=== PATIENT | female | born 1985 | race Caucasian/White ===

== ENCOUNTER 2019-02-01 05:00 | Inpatient (IN) | payer BC, SELFPAY ==
--- NOTE | 2019-01-30 11:36 | PCM.HP.BLA ---
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 Pt denies concerns today- denies VB, LOF, contractions, SOB, dizziness, VILLALBA, CP. Pt reports good FM. Pt certain she wants bilateral salpingectomy- declines LARC ? PAST MEDICAL HISTORY Diagnosis Date ? Diabetes, gestational ? ? Fatty liver disease, nonalcoholic 01/03/2018 ? Fracture of finger, distal phalanx, right, closed 05/10/2016 ? Hypertension ? ? PIH ? PMH - PAST MEDICAL HISTORY OF 2000 ? 1ST AND 2ND DEGREE GREGG TO LEGS ? PAST SURGICAL HISTORY Procedure Laterality Date ? DELIVERY ONLY ? 11/2009,07/22/12 ? , low transverse ? DELIVERY ONLY ? 12/18/15 ? , low transverse ? PAST SURGICAL HISTORY OF Right 05/2016 ? ring finger on right hand tendon repair ? PAST SURGICAL HISTORY OF ? 02/06/2018 ? endometrioma of abdominal wall [place] ? SURG RX INCOMPLETE ABORTN ? 08/13/07 ? D&C for incomplete SAB ? FAMILY HISTORY Problem Relation Age of Onset ? No Known Problems Mother ? ? Cancer Father ? ? MELANOMA ? No Known Problems Sister ? ? No Known Problems Brother ? ? Diabetes Maternal Grandmother ? ? Arthritis Maternal Grandmother ? ? Heart Maternal Grandmother ? ? Diabetes Maternal Grandfather ? ? Cancer Maternal Grandfather ? ? LUNG CANCER, smoker ? Heart Maternal Grandfather ? ? Melanoma Paternal Grandmother ? ? Cancer Paternal Grandfather ? ? MELANOMA ? No Known Problems Daughter ? ? No Known Problems Daughter ? ? No Known Problems Daughter ? ? 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 ? Current Outpatient Medications: Pdectzuz-Of-Olh-Fe-FA ( VITAMIN) tab Take 1 tablet by mouth once daily. omeprazole (PRILOSEC ORAL) Take by mouth. ? No current facility-administered medications for this visit. Allergies As of Date: 01/30/2019 (No Known Allergies) Fully Assessed 01/30/2019 ? ? REVIEW OF SYSTEMS Abdomen: no pain Bladder: no dysuria.. Expanded ROS: GENERAL: Negative for fever Allergies and current medication updated:Yes ? EXAM: BP 136/82 Wt 307 lb (139.3kg) LMP 04/27/2018 ? GENERAL: pleasant, female in no apparent distress HEENT: Normocephalic, atraumatic, mucus membranes moist and no lesions NECK: full range of motion DERMATOLOGY: Normal, without lesions, non-icteric and non-hirsute CARDIAC:Regular rate and Rhythm CHEST: Clear to auscultation Normal inspiratory effort ABDOMEN: soft, non-tender, no masses and Gravid. FHR: 136 NEURO: alert and oriented x3,exam grossly non-focal EXTREMITIES: normal ? ASSESSMENT AND PLAN: Encounter Diagnosis ? ? ICD-10-CM ? 1. Visit for screening Z36.9 URINE OB DIP B/O 2. 38 weeks gestation of Z3A.38 URINE OB DIP B/O ? 3. Pt has been counseled on risks/benefits and alternatives of surgery including but not limited to anesthesia, bleeding, infection, injury to pelvic structures including bowel, bladder, ureters and vessels. Pt wishes to proceed with surgery at this time. 4. Salpingectomy reviewed at time of surgery - will use Ligasure if available. 5. H/o cystotomy with previous cs- review this risk again 6. Consent signed. ? ? ? Mone Agustin MD ?
[2019-02-01] VITALS (25 sets, daily range): BP systolic 103–148; BP diastolic 57–85; PULSE 51–102; RESP 16–18; TEMP 35.8–36.4; O2SAT 97–100; BMI 50.6
[2019-02-01] MEDS: Lactated Ringers 1,000 ML 999 ML IV (05:20)
[2019-02-01 06:21] LABS: Absolute Lymphocyte Count 2.03 X10^3/ul (0.83-4.51); Basophil# 0.01 X10^3/uL; Basophil% 0.2 % (0-1); Eosinophil# 0.03 X10^3/uL; Eosinophils% 0.5 % (0-5); Hematocrit 33.7 % (37-47); Hemoglobin 10.7 g/dl (12.0-15.0); Lymphocyte # 2.03 X10^3/ul (4.0); Mean Corp Hgb Conc 31.8 g/gl (32-36); Mean Corpuscular Hgb 25.4 pg (27.0-32.0); Mean Corpuscular Volume 79.9 fL (81-99); Mean Platelet Vol. 12.3 fl (6.2-12.0); Monocyte# 0.45 X10^3/uL; Monocyte% 6.9 % (0-10); Neutrophil % 61.1 % (47-70); Platelet Count 233 K/mm3 (150-450); RBC Distribution Width CV 13.9 % (11.6-14.6); Red Blood Count 4.22 M/mm3 (4.2-5.4); White Blood Count 6.5 K/mm3 (4.4-11.0)
[2019-02-01 06:22] LABS: POSITIVE COUNT NO; POSITIVE DIFFERENTIAL NO; POSITIVE MORPHOLOGY NO
[2019-02-01] MEDS: Lactated Ringers 1,000 ML 150 ML IV (06:30)
[2019-02-01] MEDS: Sodium Citrate/Citric Acid 30 ML UDC PO (07:15)
--- NOTE | 2019-02-01 07:51 | FALS_PTH ---
PATIENT: WILIAM KEE LOC: [facility] U#:[id number] AGE/SX: 33/F ROOM: WP008 RE02/01/[address]: Dr. Mone Agustin, MDDOB: 1985 BED: 1 DIS: 02/04/2019 SPEC #: [id number] RECD: 02/01/19 09:29 STATUS: BRIGID TANJA #: [id number] KEERTHI: 02/01/19 07:[address]: Mone Agustin DEPT: SURGICAL PATHOLOGY RECD BY: Israel Noonan ENTERED: 02/01/19 10:55 SP TYPE: FALL TUBES OTHR DR: Dr. Jayson Rodriguez III, MD Tissues: Fallopian tube Procedures: Surgery Specimen Level II HEADER OPERATION: Tubal ligation PRE-OP DIAGNOSIS: Desired sterilization TISSUE SUBMITTED: Fallopian tube MICROSCOPIC DIAGNOSIS Bilateral fallopian tubes, tubal ligation: Right fallopian tube - segment of fallopian tube with complete lumen. Left fallopian tube - segment of fallopian tube with complete lumen. CE:jordan 02/02/19 MICROSCOPIC DESCRIPTION Slides are reviewed. GROSS DESCRIPTION Received is one container labeled with the patient's name and designated bilateral fallopian tubes. The specimen consists of two fallopian tubes with the right identified with a stitch. The right fallopian tube has an average length of 2.5 cm and has an average diameter of 0.6 cm. The left fallopian tube has an average length of 1.1 cm and has an average diameter of 0.6 cm. No mass lesions are identified. The specimen is totally submitted in two cassettes as follows: 1 - right fallopian tube, 2 - left fallopian tube. / AM:jordan 02/01/19 TC:Rachel CPT: 29126 x2
[2019-02-01] MEDS: Oxytocin 30 units/NS 500 ml 30 UNITS/500 ML IV.SOLN 167 UNITS IV (07:52)
--- NOTE | 2019-02-01 08:49 | PCM.OPRPT ---
Report of Operation Date of Procedure: 02/01/19 Pre-Operative Diagnosis: repeat elective cs and sterilization request Post-Operative Diagnosis: same punchboard inserter: Zo Armstrong Type of Anesthesia:: Spinal Grafts/Implants Used: none Delivery Classification: Scheduled Final DMITRI Source: LMP Gestational age: 39 Indications for : Repeat Elective , Desires elective sterilization Description of Procedure: After informed consent was obtained the patient was taken to the operating room she was given spinal anesthesia. He was placed in the supine position. She was then prepped and draped in normal sterile fashion. Once spinal anesthesia was found to be adequate skin incision was made with a scalpel in a Pfannenstiel fashion. It was carried down to the underlying layer of the fascia. Fascia was then incised midline with scapel and extended laterally using curved grijalva. 2 straight Franck's were placed in the superior aspect of the fascial edge and the rectus muscles were dissected off sharply. Attention was then turned to the inferior aspect where again the fascial edge was grasped with 2 straight Franck clamps tented up and the rectus muscle dissected off sharply. At this time the rectus muscles were grasped in the midline using 2 Allis clamps and scalpel was used to separate the rectus muscles. Using blunt force the peritoneum was then entered. Metzenbaums were used to take down the rectus muscles inferiorly as well as the peritoneum. At this time the vesicouterine peritoneum was identified. thick adhesion to anterior uterus- taken down with bovie. Kathryn O retractor placed. Uterine incision was made in a low transverse fashion with the scalpel and then entered bluntly. Gentle opposing traction was placed to extend the uterine incision. The membranes were ruptured amniotic fluid clear. Infant's head was then brought to the uterine incision however not engaged and kept rotating- Vacuum attempted to delivery head- two pop offs, once this was unsuccessful decision to removed kathryn O retractor and then flip to breech for delivery. Internal rotation performed and infant was delivered breech, head in flexed position with delivery. Cord clamped and cut handed to nursery team immediately. The placenta was then removed with gentle traction. The uterus was removed from the intra-abdominal cavity is wrapped in a moist lap. He was cleared of all clots and debris using a moist lap. Ring clamps were placed on the uterine angles. small extension down left side noted- #1 Vicryl suture was used in a running locked fashion for the first layer. Followed by second layer in using figure of eight sutures for hemostasis. Area on anterior uterus where adhesion was taken down was raw and bleeding- at this time sutures placed for hemostasis and bovie used as well. Tubes and ovaries were evaluated they were normal. The tubes were grasped in an avascular area with the Myla 0- plain gut suture was used to create a knuckle this was doubly secured. A portion of the tube was then resected using the Metzenbaum scissors. And the ends were coagulated using the Bovie. Uterus placed back in intrabdominal cavity. Good hemostasis was appreciated at this time the uterine incision was again evaluated good hemostasis was appreciated. Caty placed over uterus. The peritoneum and muscle was grasped with Kellys. this was reapproximated using #2 Vicryl suture in a running fashion. The fascia was then reapproximated using #1 PDS in a running fashion. Subcutaneous layer was evaluated and Bovie was used for any small oozing - Caty placed - #2-0 plain gut suture was then used to reapproximate the subcutaneous layer 4-0 Vicryl on a Vikram needle was used to reapproximate the skin in a subcutaneous fashion. Dry sterile dressing was applied. Instrument lap needle count were correct ?2. Anticipated normal postoperative course for this patient. Amniotic Membrane Rupture Type: Artificial Amniotic Fluid Description: Clear Placenta Disposition: [facility] Specimen(s) sent to pathology: none Drain: Duckworth to straight drain Cord Entanglement: None Nuchal Cord Compression: Without compression Cord Vessel Description: 3 Vessels Esitmated Blood Loss (ml): 950 Infant Gender: Male (1 minute): 3 (5 minute): 8 - 9 at 10min Delayed cord clamping: No Pre-op Antibiotic Given: - - ancef 3 g Pt instructed on risks of surgery: Bleeding, Anesthesia Risks, Infection, Need for Future C-Sections, Permanency, Failure Rate of 1 to 2%, Injury to surrounding structure(s) including bowel and bladder, Availability of other non-permanent control options Complications: - - difficult delivery of - vertex to breech delivery. - Admit VTE Documentation VTE Present on Admission: Yes VTE Mechan Device Prophylaxis: SCD's VTE Pharm Prophylaxis ordered?: Yes
[2019-02-01] MEDS: Ondansetron 4 MG/2 ML Vial IV (09:24)
[2019-02-01] MEDS: Ketorolac 30 MG/ML Syringe IV ×3 (09:24→23:06)
[2019-02-01] MEDS: Lactated Ringers 1,000 ML 100 ML IV ×3 (09:31→23:07)
[2019-02-01] MEDS: proMETHazine 25 MG/ML Syringe 12.5 MG IV ×2 (11:17→15:56)
[2019-02-01] MEDS: Acetaminophen 500 MG Tablet 1000 MG PO (12:34)
[2019-02-01] MEDS: 0.9% Saline Lock 10 ML Syringe IV ×2 (15:59→18:26)
[2019-02-01] MEDS: Furosemide 20 MG/2 ML VIAL IV (17:06)
[2019-02-02] VITALS (8 sets, daily range): BP systolic 128–149; BP diastolic 69–87; PULSE 78–115; RESP 18–20; TEMP 36.6–36.9; O2SAT 96–99
[2019-02-02] MEDS: Acetaminophen 500 MG Tablet 1000 MG PO ×2 (03:14→15:13)
[2019-02-02] MEDS: Ketorolac 30 MG/ML Syringe IV (05:39)
[2019-02-02] MEDS: Enoxaparin 40 MG/0.4 ML Syringe SC (05:39)
[2019-02-02 06:06] LABS: Hemoglobin 6.5 g/dl (12.0-15.0); Mean Corp Hgb Conc 32.5 g/gl (32-36); Mean Corpuscular Hgb 26.2 pg (27.0-32.0); Mean Corpuscular Volume 80.6 fL (81-99); Mean Platelet Vol. 10.5 fl (6.2-12.0); Platelet Count 165 K/mm3 (150-450); RBC Distribution Width SD 41.1 fl (35.1-43.9); Red Blood Count 2.48 M/mm3 (4.2-5.4); Scan Indicated on CBC? Y/N NO; White Blood Count 6.3 K/mm3 (4.4-11.0)
[2019-02-02] MEDS: oxyCODONE 5 MG Tablet PO ×4 (08:00→21:37)
--- NOTE | 2019-02-02 08:00 | PCM.PN.OB ---
Subjective: pt seen at bedside doing well. pt is up to couch, ambulating w/o difficutly. pt reports lochia mild. Passing flatus. pt denies CP, SOB, dizziness or palpitations. - Physical Exam General: Alert, Oriented x3 Abdomen: Soft, Non-Distended, - - fundus firm. dressing dry and intact. Extremities: No Calf Tenderness Vital Signs Temp Pulse Resp BP Pulse Ox 97.3 F L 90 18 128/69 H 98 02/01/19 23:25 02/02/19 06:00 02/02/19 06:00 02/02/19 03:31 02/02/19 06:00 Oxygen Delivery Method Room Air Weight: 138.164 kg Body Mass Index (BMI) 50.6 Intake and Output for Last 24 Hours 01/31/19 02/01/19 02/02/19 23:59 23:59 23:59 Intake Total 5625 / 5625 940 / 940 Output Total 1580 / 1580 800 / 800 Balance 4045 / 4045 140 / 140 Laboratory Tests Past 24 Hrs 02/02/19 05:45 WBC 6.3 RBC 2.48 L Hgb 6.5 L Hct 20.0 L MCV 80.6 L MCH 26.2 L MCHC 32.5 RDW 14.0 RDW Differential 41.1 Plt Count 165 MPV 10.5 Medical Necessity - Tobacco Use Smoking Status: Former smoker Assessment/Plan POD#1 s/p Repeat cs and bilateral partial salpingectomy- with acute on chronic blood loss anemia 1) continue to monitor VS and symptoms- if becomes symptomatic for anemia consider Blood transfusion which was reviewed with patient 2) Repeat cbc today at noon 3) pain mgmt 4) ambulation
[2019-02-02] MEDS: Senna/Docusate Sodium 1 Tablet PO (09:49)
[2019-02-02] MEDS: Ibuprofen 600 MG Tablet PO ×2 (11:24→23:02)
[2019-02-02 12:29] LABS: Absolute Lymphocyte Count 1.46 X10^3/ul (0.83-4.51); Absolute Neutrophil Count 5.7 X10^3/uL (2.0-7.7); Basophil# 0.01 X10^3/uL; Basophil% 0.1 % (0-1); Eosinophil# 0.02 X10^3/uL; Eosinophils% 0.3 % (0-5); Hematocrit 21.5 % (37-47); Hemoglobin 6.8 g/dl (12.0-15.0); Lymphocyte # 1.46 X10^3/ul (4.0); Lymphocyte % 18.6 % (19-41); Mean Corp Hgb Conc 31.6 g/gl (32-36); Mean Corpuscular Hgb 25.9 pg (27.0-32.0); Mean Corpuscular Volume 81.7 fL (81-99); Mean Platelet Vol. 11.7 fl (6.2-12.0); Monocyte# 0.64 X10^3/uL; Monocyte% 8.2 % (0-10); Neutrophil # 5.68 X10^3/uL (2.7-7.7); Neutrophil % 72.4 % (47-70); Platelet Count 192 K/mm3 (150-450); RBC Distribution Width CV 13.7 % (11.6-14.6); RBC Distribution Width SD 38.8 fl (35.1-43.9); Red Blood Count 2.63 M/mm3 (4.2-5.4); White Blood Count 7.8 K/mm3 (4.4-11.0)
[2019-02-02 12:32] LABS: POSITIVE COUNT NO; POSITIVE DIFFERENTIAL NO; POSITIVE MORPHOLOGY NO
[2019-02-02] MEDS: 0.9% Saline Lock 10 ML Syringe IV (16:52)
[2019-02-03] VITALS (13 sets, daily range): BP systolic 113–152; BP diastolic 74–88; PULSE 100–119; RESP 16–20; TEMP 35.9–37.4; O2SAT 95–97
[2019-02-03] MEDS: Acetaminophen 500 MG Tablet 1000 MG PO ×2 (01:50→08:29)
[2019-02-03] MEDS: oxyCODONE 5 MG Tablet PO ×4 (04:34→21:22)
[2019-02-03 05:23] LABS: Hemoglobin 6.2 g/dl (12.0-15.0); Mean Corpuscular Hgb 25.3 pg (27.0-32.0); Mean Corpuscular Volume 81.6 fL (81-99); Mean Platelet Vol. 10.2 fl (6.2-12.0); Platelet Count 186 K/mm3 (150-450); RBC Distribution Width CV 14.3 % (11.6-14.6); RBC Distribution Width SD 42.7 fl (35.1-43.9); Red Blood Count 2.45 M/mm3 (4.2-5.4); Scan Indicated on CBC? Y/N NO
--- NOTE | 2019-02-03 06:17 | PCM.PN.OB ---
Subjective: Patient had some significant pain issues overnight. Is feeling much better this morning. Had a bowel movement and feels better after that. No nausea or vomiting. Average lochia. Tolerating regular diet. Ambulating and able to take care of . Feels very fatigued with ambulating even around the room. - Physical Exam General: Alert, Cooperative, No apparent distress, - - Skin is very pale Abdomen: Soft, Distended - Moderately, softly, Obese, Tender - Appropriately, - - Incision: Bandages clean dry and intact Extremities: Edema - 2+ Vital Signs Temp Pulse Resp BP Pulse Ox 98.6 F 105 H 16 136/75 H 96 02/03/19 01:46 02/03/19 04:36 02/03/19 01:46 02/03/19 01:46 02/03/19 01:46 Oxygen Delivery Method Room Air Weight: 138.164 kg Body Mass Index (BMI) 50.6 Intake and Output for Last 24 Hours 02/01/19 02/02/19 02/03/19 23:59 23:59 23:59 Intake Total 5625 / 5625 940 / 940 Output Total 1580 / 1580 1000 / 1000 Balance 4045 / 4045 -60 / -60 Laboratory Tests Past 24 Hrs 02/02/19 02/03/19 12:04 05:16 WBC 7.8 9.0 RBC 2.63 L 2.45 L Hgb 6.8 L 6.2 L Hct 21.5 L 20.0 L MCV 81.7 81.6 MCH 25.9 L 25.3 L MCHC 31.6 L 31.0 L RDW 13.7 14.3 RDW Differential 38.8 42.7 Plt Count 192 186 MPV 11.7 10.2 Immature Gran % (Auto) 0.400 Neut % (Auto) 72.4 H Lymph % (Auto) 18.[address] [facility] % (Auto) 8.2 Eos % (Auto) 0.3 Baso % (Auto) 0.1 Absolute Neuts (auto) 5.7 Absolute Lymphs (auto) 1.46 Total Counted Not Reportable Medical Necessity - Tobacco Use Smoking Status: Former smoker Assessment/Plan Postoperative day #2 status post repeat section bilateral tubal ligation by partial salpingectomy Patient had chronic antepartum anemia, now has superimposed acute blood loss anemia from surgery. No evidence of ongoing blood loss, however patient is symptomatic from her significant anemia. I discussed with the patient risk benefits and alternatives to transfusion of 2 units of packed red blood cells. Patient is agreeable to this. Will pretreat with Benadryl and Tylenol. Check CBC after infusion. Otherwise, routine care. Urged patient to take her pain medications regularly to help keep her pain under better control.
[2019-02-03] MEDS: Enoxaparin 40 MG/0.4 ML Syringe SC (06:23)
[2019-02-03] MEDS: Ibuprofen 600 MG Tablet PO ×2 (08:14→23:33)
[2019-02-03] MEDS: DiphenhydrAMINE 25 MG Capsule 50 MG PO (08:15)
[2019-02-03] MEDS: 0.9% Saline Lock 10 ML Syringe IV ×2 (08:17→17:54)
[2019-02-03] MEDS: Furosemide 40 MG/4 ML Vial IV (11:26)
[2019-02-03 16:47] LABS: Hematocrit 25.8 % (37-47); Hemoglobin 8.2 g/dl (12.0-15.0); Mean Corp Hgb Conc 31.8 g/gl (32-36); Mean Corpuscular Hgb 25.9 pg (27.0-32.0); Mean Corpuscular Volume 81.6 fL (81-99); Mean Platelet Vol. 10.4 fl (6.2-12.0); Platelet Count 202 K/mm3 (150-450); RBC Distribution Width CV 14.2 % (11.6-14.6); RBC Distribution Width SD 41.9 fl (35.1-43.9); Red Blood Count 3.16 M/mm3 (4.2-5.4); White Blood Count 8.5 K/mm3 (4.4-11.0)
[2019-02-03 16:51] LABS: Scan Indicated on CBC? Y/N NO
[2019-02-03] MEDS: proMETHazine 25 MG/ML Syringe 12.5 MG IV (17:54)
[2019-02-04 03:30] VITALS: BP 141/91; PULSE 95; RESP 16; TEMP 36.2
[2019-02-04] MEDS: oxyCODONE 5 MG Tablet PO (03:35)
[2019-02-04] MEDS: Enoxaparin 40 MG/0.4 ML Syringe SC (06:10)
[2019-02-04] MEDS: Ibuprofen 600 MG Tablet PO (08:38)
[2019-02-04 08:47] VITALS: BP 144/87; PULSE 105; RESP 18; TEMP 36.3; O2SAT 96
--- NOTE | 2019-02-04 11:19 | PCM.PN.OB ---
Subjective: Pain well controlled, much better last night than the previous night. Has been taking pain medication regularly to keep pain under better control. Positive bowel movement, tolerating regular diet. Ambulating urinating without difficulty. Patient does state that she get mildly lightheaded in the shower, otherwise is able to ambulate without significant shortness of breath or dyspnea or palpitations. She does not feel short of breath or like her heart is racing at rest like she did yesterday before the transfusion. She denies any headache, visual changes or epigastric pain. - Physical Exam General: Alert, Cooperative, No apparent distress Abdomen: Soft, Non-Distended, Obese, Tender - Appropriately Extremities: Edema - 2+, 2+ DTRs, no clonus Skin: Incision - Bandage is clean dry and intact Vital Signs Temp Pulse Resp BP Pulse Ox 97.3 F L 105 H 18 144/87 H 96 02/04/19 08:47 02/04/19 08:47 02/04/19 08:47 02/04/19 08:47 02/04/19 08:47 Oxygen Delivery Method Room Air Weight: 138.164 kg Body Mass Index (BMI) 50.6 Intake and Output for Last 24 Hours 02/02/19 02/03/19 02/04/19 23:59 23:59 23:59 Intake Total 940 / 940 1200 / 1200 Output Total 1000 / 1000 1700 / 1700 Balance -60 / -60 -500 / -500 Laboratory Tests Past 24 Hrs 02/01/19 02/03/19 02/04/19 05:20 16:33 10:55 WBC 8.5 Pending RBC 3.16 L Pending Hgb 8.2 L Pending Hct 25.8 L Pending MCV 81.6 Pending MCH 25.9 L Pending MCHC 31.8 L Pending RDW 14.2 Pending RDW Differential 41.9 Pending Plt Count 202 Pending MPV 10.4 Crossmatch See Detail Medical Necessity - Tobacco Use Smoking Status: Former smoker Assessment/Plan Postoperative day #3 status post repeat section with bilateral tubal ligation. Chronic antepartum anemia with superimposed acute blood loss anemia, status post 2 units of packed red blood cells. Mild tachycardia overnight. Will recheck hemoglobin this morning and if it is stable, and she continues to tolerate the anemia well this morning, will discharge home with iron. Patient states understanding and agreement of this plan. Blood pressures remained stable. We will continue to monitor closely. Return or call if any symptoms of preeclampsia with severe features or other concerns. Otherwise follow-up in the office in 3 to 5 days or as needed. Patient agrees with this plan. is doing well and ready for discharge. She is pumping breastmilk.
[2019-02-04 11:22] LABS: Hematocrit 25.2 % (37-47); Hemoglobin 8.1 g/dl (12.0-15.0); Mean Corp Hgb Conc 32.1 g/gl (32-36); Mean Corpuscular Volume 80.8 fL (81-99); Mean Platelet Vol. 10.9 fl (6.2-12.0); Platelet Count 232 K/mm3 (150-450); RBC Distribution Width CV 14.6 % (11.6-14.6); RBC Distribution Width SD 42.7 fl (35.1-43.9); Red Blood Count 3.12 M/mm3 (4.2-5.4); White Blood Count 5.6 K/mm3 (4.4-11.0)
[2019-02-04 11:23] LABS: Scan Indicated on CBC? Y/N NO
--- NOTE | 2019-02-04 11:27 | DCINST_ITS ---
Discharge Diet: No Restrictions Discharge Activity: Return to Normal Activity, May Not Drive - for 2 weeks, May not drive while taking narcotic pain medications., May Shower, May Take a Tub Bath - in 7 days. May resume sexual activity in: 4-6 weeks Lifting Restrictions: 20 pounds Additional Activity Instructions:: Nothing in the vagina for 4-6 weeks. You may return to work/school in 6 weeks. Call your doctor if your incision/area has: Continuous Slow Oozing, Sudden Increased Bleeding, Increased Pain/ Swelling, Increased Redness, Foul Smelling Discharge Call your doctor if you observe: Fever of 101 or Higher, Using more than one pad per hour - for 2 hours Suture Line Care: Avoid Pulling/Pushing, Avoid Pinching/Bending Cleanse incision/area with: Keep Dressing Clean & Dry Additional Instructions: If you experience any of the following, contact your healthcare provider. * Bleeding that soaks a pad every hour for 2 hours * Fever 100.4 or higher * Unrelieved incision or abdominal pain * Swelling, redness, discharge or bleeding from your incision or episiotomy site * Your incision begins to separate * Problems urinating (including inability to urinate or burning while urinating). * Visual changes * Severe headache * Flu-like symptoms * Pain or redness in one of both of your breasts * Pain, warmth, tenderness or swelling in your legs, especially the calf area * Frequent nausea and vomiting * Symptoms of depression or anxiety If you experience any of the following, call 911 or go to the nearest Emergency Room. * Chest pain * Problems breathing * Seizure activity * Partial or complete paralysis of a body part, slurred speech, weakness or drooping of the face, or a sudden inability to walk or hold your balance Allergies/Adverse Reactions: Allergies latex Allergy (Verified 02/01/19 05:46) Rash acetaminophen [From Vicodin] Adverse Reaction (Verified 02/01/19 05:46) Nausea/Vom/Diarrhea hydrocodone bitartrate [From Vicodin] Adverse Reaction (Verified 02/01/19 05:46) Nausea/Vom/Diarrhea Medications to take at Discharge Flh148/Iron Fum/Folic [ Tablet] 1 each PO DAILY 12/18/15 Docusate Sodium [Colace] 100 mg PO BID PRN PRN #60 capsule 02/04/19 Ferrous Sulfate [Iron] 325 mg PO QODAY #15 tablet 02/04/19 Ibuprofen [Motrin] 600 mg PO Q6H PRN #60 tablet 02/04/19 Oxycodone HCl/Acetaminophen [Percocet 5-325] 1 - 2 tablet PO Q8 PRN 7 Days #28 tablet 02/04/19 The following prescriptions were given: Docusate Sodium [Colace] 100 mg PO BID PRN PRN #60 capsule PRN Reason: Constipation Ferrous Sulfate [Iron] 325 mg PO QODAY #15 tablet Oxycodone HCl/Acetaminophen [Percocet 5-325] 1 - 2 tablet PO Q8 PRN 7 Days #28 tablet PRN Reason: Moderate-Severe pain Ibuprofen [Motrin] 600 mg PO Q6H PRN #60 tablet PRN Reason: Pain Follow-Up: Call to make an appointment with your doctor for an incision check in 1-2 weeks. You will also need a 6 week post- follow up appointment. Test results from this visit will be discussed in further detail at your follow- up appointment, if applicable. Please Follow Up With: Mone Agustin MD - -[phone] When: 3-5 days and 6 weeks or as needed Primary Care Physician: Jayson Rodriguez III, MD [Primary Care Provider] -
--- NOTE | 2019-02-04 11:28 | PCM.DC.SUM ---
Discharge Date and Diagnosis Date of Admission: 02/01/19 Date of Discharge: 02/04/19 Hospital Course and Treatment Operations: - - Repeat low transverse section via Pfannenstiel skin incision with bilateral partial salpingectomy Procedures: - - Transfusion of 2 units of packed red blood cells Summary of Care Provided: The patient is a 33 high risk multigravida female presented for repeat section. She had chronic antepartum anemia. Also morbid maternal obesity with BMI of 50.7. Her repeat section was performed on 02/01/2019. She had some significant adhesions and the was 10 pounds 7 ounces. There is difficulty getting the head to engage at the incision. A vacuum was placed on the flexion point and popped off twice. Even at that point, the head floated away with attempt to deliver it. Eventually, the fetus was turned to breech and delivered footling breech. Bilateral partial salpingectomy was then performed. Postoperatively, the patient had some tachycardia and was noted to be pale. She had significant anemia resulting from her chronic anemia and SPECT a drop from the blood loss during the surgery. She had no evidence of ongoing postoperative hemorrhage. Postoperative day #1 she tolerated the anemia fairly well, but on postoperative day #2 her hemoglobin trended down and she remained tachycardic and lightheaded with activity. Decision was made to transfuse 2 units packed red blood cells. By postoperative day #3, her hemoglobin was stable, she was ambulating urinating tolerating regular diet and oral pain medications without difficulty and she was discharged home with routine instructions and prescriptions. [] - Physical Exam Vital Signs Temp Pulse Resp BP Pulse Ox 97.3 F L 105 H 18 144/87 H 96 02/04/19 08:47 02/04/19 08:47 02/04/19 08:47 02/04/19 08:47 02/04/19 08:47 Oxygen Delivery Method Room Air Weight: 138.164 kg Body Mass Index (BMI) 50.6 Intake and Output for Last 24 Hours 02/02/19 02/03/19 02/04/19 23:59 23:59 23:59 Intake Total 940 / 940 1200 / 1200 Output Total 1000 / 1000 1700 / 1700 Balance -60 / -60 -500 / -500 Laboratory Tests Past 24 Hrs 02/01/19 02/03/19 02/04/19 05:20 16:33 10:55 WBC 8.5 5.6 RBC 3.16 L 3.12 L Hgb 8.2 L 8.1 L Hct 25.8 L 25.2 L MCV 81.6 80.8 L MCH 25.9 L 26.0 L MCHC 31.8 L 32.1 RDW 14.2 14.6 RDW Differential 41.9 42.7 Plt Count 202 232 MPV 10.4 10.9 Crossmatch See Detail Discharge Diet: No Restrictions Discharge Activity: Return to Normal Activity, May Not Drive - for 2 weeks, May not drive while taking narcotic pain medications., May Shower, May Take a Tub Bath - in 7 days. May resume sexual activity in: 4-6 weeks Additional Activity Instructions:: Nothing in the vagina for 4-6 weeks. You may return to work/school in 6 weeks. Call your doctor if your incision/area has: Continuous Slow Oozing, Sudden Increased Bleeding, Increased Pain/ Swelling, Increased Redness, Foul Smelling Discharge Call your doctor if you observe: Fever of 101 or Higher, Using more than one pad per hour - for 2 hours Suture Line Care: Avoid Pulling/Pushing, Avoid Pinching/Bending Cleanse incision/area with: Keep Dressing Clean & Dry Home Medications: Medications to take at Discharge [id number]/Iron Fum/Folic [ Tablet] 1 each PO DAILY 12/18/15 Docusate Sodium [Colace] 100 mg PO BID PRN PRN #60 capsule 02/04/19 Ferrous Sulfate [Iron] 325 mg PO QODAY #15 tablet 02/04/19 Ibuprofen [Motrin] 600 mg PO Q6H PRN #60 tablet 02/04/19 Oxycodone HCl/Acetaminophen [Percocet 5-325] 1 - 2 tablet PO Q8 PRN 7 Days #28 tablet 02/04/19 Following Prescrptions Were Given to Patient: Docusate Sodium [Colace] 100 mg PO BID PRN PRN #60 capsule PRN Reason: Constipation Ferrous Sulfate [Iron] 325 mg PO QODAY #15 tablet Oxycodone HCl/Acetaminophen [Percocet 5-325] 1 - 2 tablet PO Q8 PRN 7 Days #28 tablet PRN Reason: Moderate-Severe pain Ibuprofen [Motrin] 600 mg PO Q6H PRN #60 tablet PRN Reason: Pain Primary Care Physician: Jayson Rodriguez III, MD [Primary Care Provider] - Please Follow Up With: Mone Agustin MD - -[phone] When: 3-5 days and 6 weeks or as needed Medical Necessity - Tobacco Use Smoking Status: Former smoker Meaningful Use Info Meaningful Use Diagnoses (Choose all that apply): None applicable
[2019-02-05 15:51] LABS: Pathology Specimen OB SEE PATHOLOGY REPORT
--- NOTE | 2019-02-08 17:02 | NURSING ---
On follow up phone call states everything doing well and enjoyed stay. 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
== END 2019-02-04 12:25 | disposition home or self-care (01) | DRG 784 ==
PROVIDERS: Obstetrics & Gynecology; Admitting Provider Obstetrics & Gynecology; Family Provider Family Medicine; PCP Family Medicine; Referring Provider Obstetrics & Gynecology; Visit Provider Obstetrics & Gynecology
PROC: (CPT 59514; principal; 2019-02-01 07:15)
DX: O34.211 Maternal care for low transverse scar from previous cesarean delivery (principal); D62 Acute posthemorrhagic anemia; N85.8 Other specified noninflammatory disorders of uterus; Z3A.38 38 weeks gestation of pregnancy; Z37.0 Single live birth; Z30.2 Encounter for sterilization; Z87.891 Personal history of nicotine dependence; O99.02 Anemia complicating childbirth; D50.0 Iron deficiency anemia secondary to blood loss (chronic); E66.01 Morbid (severe) obesity due to excess calories; O99.214 Obesity complicating childbirth
CPT/HCPCS: 36415; 85025; 85027; 86850; 86900; 86920; 86922; 88302; 99218; J7120; P9016; P9040; A4216; G0378; J1940; J2405

== ENCOUNTER → 2022-10-12 | Outpatient (CLI) | payer BC, SELFPAY ==
[2022-10-12 12:13] LABS: Absolute Lymphocyte Count 2.47 X10^3/uL (0.83-4.51); Absolute Neutrophil Count 4.2 X10^3/uL (2.0-7.7); Basophil# 0.05 X10^3/uL; Basophil% 0.7 % (0-1); Eosinophils% 1.4 % (0-5); Hematocrit 35.4 % (37-47); Hemoglobin 10.6 g/dL (12.0-15.0); Lymphocyte # 2.47 X10^3/ul (0.83-4.51); Lymphocyte % 34.3 % (19-41); Mean Corp Hgb Conc 29.9 g/dL (32-36); Mean Platelet Vol. 11.1 fl (6.2-12.0); Monocyte# 0.33 X10^3/uL; Monocyte% 4.6 % (0-10); NRBC Flagged by Analyzer 0 % (0-5); Neutrophil # 4.23 X10^3/uL (2.7-7.7); Neutrophil % 58.7 % (47-70); Platelet Count 350 K/mm3 (150-450); RBC Distribution Width CV 16.6 % (11.6-14.6); RBC Distribution Width SD 45.8 fl (35.1-43.9); White Blood Count 7.2 K/mm3 (4.4-11.0)
[2022-10-12 12:57] LABS: ALB/GLOB Ratio 0.9 RATIO (0.9-2.4); AST(SGOT) 17 U/L (15-37); Alanine Aminotransfer ALT/SGPT 45 U/L (13-56); Albumin, Serum 3.6 g/dL (3.2-5.0); Alkaline Phosphatase 106 U/L (45-117); Anion Gap 8 (5-15); BUN 7 mg/dL (7-18); BUN/Creat Ratio 10.3 RATIO (10-20); Calcium,Total 8.7 mg/dL (8.5-10.1); Chloride 107 mmol/L (98-107); Cholesterol 187 mg/dL (200); Creatinine, Serum 0.68 mg/dL (0.55-1.02); EST Glomerular Filtration Rate 103 mL/min (>60); Est Glom Filt Rate - Afr Amer 125 mL/min (>60); Globulin 3.9 g/dL (2.2-4.2); Glucose 100 mg/dL (74-106); High Density Lipoprotein 32 mg/dL; Potassium 4.3 mmol/L (3.5-5.1); Protein, Total 7.5 g/dL (6.4-8.2); Sodium Level 140 mmol/L (136-145); Thyroid Stim Hormone (TSH) 2.76 uIU/mL (0.358-3.74); Triglycerides 129 mg/dL; Very Low Density Lipoprotein 26 mg/dL (5-40)
[2022-10-12 13:02] LABS: Hemoglobin A1c 6.5 % (3.8-5.6)
== END | disposition home or self-care (01) ==
LOC: BIMLAB 10:56
PROVIDERS: PCP Internal Medicine; Referring Provider Internal Medicine; Visit Provider Internal Medicine
DX: N92.0 Excessive and frequent menstruation with regular cycle (principal); Z86.32 Personal history of gestational diabetes; E78.00 Pure hypercholesterolemia, unspecified
CPT/HCPCS: 36415; 80053; 80061; 83036; 84443; 85025

== ENCOUNTER → 2022-11-12 | Outpatient (CLI) | payer BC, SELFPAY ==
--- NOTE | 2022-11-12 12:52 | US_ITS ---
STUDY: ULTRASOUND OF THE FEMALE PELVIS - LIMITED REASON FOR EXAM: Female, 37 years old heavy menstrual bleeding/clotting TECHNIQUE: Transabdominal TECHNICAL QUALITY: Adequate. COMPARISON: None. FINDINGS: The uterus is anteverted and is in a midline position. The uterus measures 10.4 x 6.6 x 3.9 cm. Normal uterine cervix. The endometrium measures 9 mm in thickness, and is hyperechoic. There is no demonstrated endometrial mass. There is a 1.5 cm x 1.6 x 1.4 cm fibroid in the anterior aspect of the body of the uterus. The right ovary is not visualized due to overlying bowel gas. The left ovary measures 2.6 cm x 2.7 cm x 3 cm. There is no left ovarian cyst or ovarian mass. There is no visualized left adnexal mass or complex lesion. There is normal arterial and normal venous vascularity. There is no fluid in the cul-de-sac. US/Pelvic (Non ) IMPRESSION: 1.5 sono by 1.6 x 1.4 cm fibroid in along the anterior aspect of the uterine body. Electronically Signed: Martin Lennon MD at 15:27 EST ,
== END | disposition home or self-care (01) ==
LOC: US 12:52
PROVIDERS: PCP Internal Medicine; Referring Provider Internal Medicine; Visit Provider Internal Medicine
DX: N92.0 Excessive and frequent menstruation with regular cycle (principal)
CPT/HCPCS: 76856

== ENCOUNTER → 2022-11-25 | Outpatient (CLI) | payer BC, SELFPAY ==
[2022-11-25 12:44] LABS: Microalbumin,Random Urine 65.6 mg/L (NO RANGE EST.)
== END | disposition home or self-care (01) ==
LOC: BIMLAB 08:55
PROVIDERS: PCP Internal Medicine; Referring Provider Internal Medicine; Visit Provider Internal Medicine
DX: E11.9 Type 2 diabetes mellitus without complications (principal)
CPT/HCPCS: 82043; 82570

== ENCOUNTER → 2023-01-03 | Outpatient (CLI) | payer BC, SELFPAY ==
[2023-01-10 15:07] LABS: HPV APTIMA, High Risk Negative (Negative)
== END | disposition home or self-care (01) ==
LOC: LABSPEC 14:00
PROVIDERS: PCP Internal Medicine; Referring Provider Nurse Practitioner Women's Health; Visit Provider Nurse Practitioner Women's Health
DX: Z01.419 Encounter for gynecological examination (general) (routine) without abnormal findings (principal)
CPT/HCPCS: 87624; 88175; G0145

== ENCOUNTER → 2023-01-18 | Outpatient (CLI) | payer BC, SELFPAY ==
--- NOTE | 2023-01-18 09:10 | EMB_PTH ---
PATIENT: WILIAM KEE [facility] U#:[id number] AGE/SX: 37/F ROOM: RE01/18/[address]: KARMEN Hawkins : 1985 BED: DIS: 01/18/2023 SPEC #: [id number] RECD: 01/18/23 09:37 STATUS: BRIGID REQ #: [id number] KEERTHI: 01/18/23 09:[address]: Jeane Vega NP DEPT: SURGICAL PATHOLOGY RECD BY: Jodi Lozano ENTERED: 01/18/23 10:29 SP TYPE: ENDOM BX/C CHANNING DR: Dr. Manju Brewster MD Tissues: Endometrium, NOS Procedures: Surgery Specimen Level IV HEADER OPERATION: Endometrial biopsy PRE-OP DIAGNOSIS: Abnormal uterine bleeding TISSUE SUBMITTED: Endometrial tissue MICROSCOPIC DIAGNOSIS Endometrium, biopsy: Disordered proliferative endometrium. Rare fragments of benign superficial endocervix. AM:jordan 01/19/2023 MICROSCOPIC DESCRIPTION Slides are reviewed. GROSS DESCRIPTION Received is one container labeled with the patient's name and not further designated. The specimen consists of multiple irregular fragments of red-jay soft tissue that in aggregate measure 2.2 x 2.0 x 0.2 cm. The specimen is totally submitted in one cassette. / AM:jordan 01/18/2023 TC:5 CPT: 15820
== END | disposition home or self-care (01) ==
LOC: LABSPEC 09:50
PROVIDERS: PCP Internal Medicine; Referring Provider Nurse Practitioner Women's Health; Visit Provider Nurse Practitioner Women's Health
DX: N93.9 Abnormal uterine and vaginal bleeding, unspecified (principal)
CPT/HCPCS: 88305

== ENCOUNTER → 2023-04-21 | Outpatient (CLI) | payer BC, SELFPAY ==
[2023-04-21 12:43] LABS: Hemoglobin 9.9 g/dL (12.0-15.0); Mean Corp Hgb Conc 29.1 g/dL (32-36); Mean Corpuscular Hgb 22.4 pg (27.0-32.0); Mean Corpuscular Volume 76.9 fL (81-99); Mean Platelet Vol. 10.9 fl (6.2-12.0); Platelet Count 381 K/mm3 (150-450); RBC Distribution Width CV 15.7 % (11.6-14.6); RBC Distribution Width SD 44.2 fl (35.1-43.9); Red Blood Count 4.42 M/mm3 (4.2-5.4); White Blood Count 6.7 K/mm3 (4.4-11.0)
[2023-04-21 13:15] LABS: Anion Gap 5 (5-15); BUN 11 mg/dL (7-18); BUN/Creat Ratio 15.6 RATIO (10-20); Calcium,Total 8.6 mg/dL (8.5-10.1); Chloride 110 mmol/L (98-107); Creatinine, Serum 0.71 mg/dL (0.55-1.02); EST Glomerular Filtration Rate 99 mL/min (>60); Est Glom Filt Rate - Afr Amer 120 mL/min (>60); Glucose 107 mg/dL (74-106); Potassium 4.1 mmol/L (3.5-5.1); Sodium Level 141 mmol/L (136-145)
== END | disposition home or self-care (01) ==
LOC: BIMLAB 08:28
PROVIDERS: PCP Internal Medicine; Referring Provider Internal Medicine; Visit Provider Internal Medicine
DX: N92.0 Excessive and frequent menstruation with regular cycle (principal); E11.9 Type 2 diabetes mellitus without complications
CPT/HCPCS: 36415; 80048; 85027

== ENCOUNTER → 2023-11-16 | Outpatient (CLI) | payer BC, SELFPAY ==
--- OUTSIDE RECORDS SUMMARY | 2023-11-16 08:35 | XMS RPT_ITS | CCD ---
Author Name Unknown Address [facility] [address] [place] [address] Organization [facility] Care Team Providers Care Garment Sorter Name Role Phone JOSEPH NERI Unavailable Unavailable JOSEPH NERI Unavailable Unavailable Allergies Allergy Classification Reported Allergen(s) Allergy Type Date of Onset Reaction(s) Facility (1 source) acetaminophen / HYDROcodone; Translations: [HYDROCODONE-ACET AMINOPHEN] Drug Allergy 5 [facility] Repository (1 source) Latex; Translations: [LATEX] Propensity to adverse reactions to drug (disorder) 9 [facility] Repository Problems Problem Classification Problem Date Documented Da te Episodic/Chronic Endometriosis (1 source) Endometriosis, unspecified; Translations: [Endometriosis, unspecified] Onset: 12-30-2017 Chronic Results Test Name Value Interpretation Reference Range Facil ity Encounters Encounter Date Encounter Type Care Provider Facility Start: 02-06-2018 End: 02-06-2018 Ambulatory [facility] Clinical Note 09-16-2021 Note Date & Type Note Facility 09-16-2021 Note Patient Outreach (TALIB ARNDT) WILIAM KEE ([id number]) 1985 F Date Time Provider Department 09/16/21 SHY MARSHALL During your visit today, we recorded the following information about you: Shy Marshall MA 09/16/2021 8:28 AM Signed POPULATION HEALTH NAVIGATION OUTREACH Action/FYI Attempted to contact patient, no answer and left message requesting a return call to update PCP and schedule Wellness Visit. [employer] message also sent. Contact made with patient or family member? NO Pt identified by name and : NO Outreach Outcome/Action Unable to reach patient: Left message MyChart message sent Reason for Outreach Attribution: Provider Off-boarding Payer: Payor: ANTHEM / Plan: BLUE CARD PPO OOS / Product Type: PPO / Care Gap Reviewed:: Annual Wellness visit Flu vaccine Reminder: Reminder note to check Health Maintenance for items below Health Maintenance items due: COVID-19 VACCINE(1) Never done HEPATITIS C SCREENING Never done DEPRESSION SCREENING due on 01/03/2019 INFLUENZA(1) due on 05/20/2021 Advanced Directives Completed: Have you ever planned for future healthcare decisions with a power of maintenance shop laborer, living will, or advance directives? Referrals: Message Sent to Practice: Navigation Signature: Shy Marshall MA September 16, 2021 8:27 AM Allergies As of Date: 09/16/2021 (No Known Allergies) Date Reviewed: 06/06/2020 Reviewed by: Lexi Mccarty - Fully Assessed Reason for Visit: Population Health Navigation Outreach [3910] Cmt: PCP Offboarding Meds Comments as of 01/31/2020: No medications Problem List As Of Date 09/16/2021 Noted Resolved Supervision of other normal [Z34.80] 05/05/2009 08/31/2012 Transient Hypertension of , Antepartum*08/07/2009 11/14/2009 Diabetes mellitus complicating [O24.9*01/04/2012 08/31/2012 History of section [Z98.891] 01/05/2012 08/31/2012 UTI (urinary tract infection) during *01/07/2012 08/31/2012 History of gestational diabetes [Z86.32] 01/27/2015 02/03/2016 Encounter for supervision of normal i*06/30/2015 02/03/2016 Previous section [Z98.891] 08/04/2015 02/03/2016 Supervision of normal [Z34.90] 10/17/2015 02/03/2016 Fracture of finger, distal phalanx, right, clos*05/10/2016 01/23/2018 Injury of flexor tendon of hand [S66.809A] 05/10/2016 01/23/2018 Endometrioma [N80.9] 12/30/2017 Fatty liver disease, nonalcoholic [K76.0] 01/03/2018 Hepatic hemangioma [D18.03] 01/03/2018 with history of section, ant*06/12/2018 03/21/2019 Family history of congenital heart defect [Z82.*06/12/2018 03/21/2019 History of gestational diabetes in prior pregna*06/12/2018 03/21/2019 History of gestational hypertension [Z87.59] 06/26/2018 03/21/2019 Abnormal glucose affecting [O99.810] 06/27/2018 03/21/2019 Real time reverse transcriptase PCR positive fo*01/25/2020 Encounter Status:Closed by SHY MARSHALL on 09/16/21 [facility] Progress note 09-16-2021 Note Date & Type Note Facility 09-16-2021 Note HNO ID: [id number] Author: Shy Marshall MA Service: ? Author Type: Director Of Enterprise Architecture Type: Progress Notes Filed: 09/16/2021 8:28 AM Note Text: POPULATION HEALTH NAVIGATION OUTREACH Action/FYI Attempted to contact patient, no answer and left message requesting a return call to update PCP and schedule Wellness Visit. onkeahart message also sent. Contact made with patient or family member? NO Pt identified by name and : NO Outreach Outcome/Action Unable to reach patient: Left message MyChart message sent Reason for Outreach Attribution: Provider Off-boarding Payer: Payor: TAMEM / Plan: BLUE CARD PPO OOS / Product Type: PPO / Care Gap Reviewed:: Annual Wellness visit Flu vaccine Reminder: Reminder note to check Health Maintenance for items below Health Maintenance items due: COVID-19 VACCINE(1) Never done HEPATITIS C SCREENING Never done DEPRESSION SCREENING due on 01/03/2019 INFLUENZA(1) due on 05/20/2021 Advanced Directives Completed: Have you ever planned for future healthcare decisions with a power of maintenance shop laborer, living will, or advance directives? Referrals: Message Sent to Practice: Navigation Signature: Shy Marshall MA September 16, 2021 8:27 AM [facility] Summary Purpose Family History No Family History Records FoundNo Family History Records Found Advance Directives No Advanced Directives Records FoundNo Advanced Directives Records Found Additional Source Comments INFORMATION SOURCE (unrecogn ized section and content) DATE CREATED AUTHOR AUTHOR'S ORGANIZ ATION 10/28/2021 [facility] FOR RECORDS PERTAINING TO PATIENTS WHO ARE OR HAVE BEEN ENROLLED IN A CHEMICAL DEPENDENCY/SUBSTANCEABUSE PROGRAM, SOME INFORMATION MAY BE OMITTED. This clinical summary was aggregated from multiple sources. Caution should be exercised in using it in the provision of clinical care. This summary normalizes information from multiple sources, and as a consequence, information in this document may materially change the coding, format and clinical context of patient data. In addition, data may be omitted in some cases. CLINICAL DECISIONS SHOULD BE BASED ON THE PRIMARY CLINICAL RECORDS. [facility] [facility]. provides no warranty or guarantee of the accuracy or completeness of information in this document.
[2023-11-16 12:22] LABS: Absolute Lymphocyte Count 2.23 X10^3/uL (0.83-4.51); Absolute Neutrophil Count 3.9 X10^3/uL (2.0-7.7); Basophil# 0.04 X10^3/uL; Basophil% 0.6 % (0-1); Eosinophil# 0.07 X10^3/uL; Eosinophils% 1.1 % (0-5); Hematocrit 39.4 % (37-47); Hemoglobin 12.1 g/dL (12.0-15.0); Lymphocyte # 2.23 X10^3/ul (0.83-4.51); Lymphocyte % 33.7 % (19-41); Mean Corp Hgb Conc 30.7 g/dL (32-36); Mean Corpuscular Hgb 24.6 pg (27.0-32.0); Mean Corpuscular Volume 80.1 fL (81-99); Mean Platelet Vol. 11.3 fl (6.2-12.0); Monocyte# 0.34 X10^3/uL; Monocyte% 5.1 % (0-10); NRBC Flagged by Analyzer 0 % (0-5); Neutrophil # 3.91 X10^3/uL (2.7-7.7); Platelet Count 345 K/mm3 (150-450); RBC Distribution Width CV 15.6 % (11.6-14.6); RBC Distribution Width SD 44.5 fl (35.1-43.9); Red Blood Count 4.92 M/mm3 (4.2-5.4); White Blood Count 6.6 K/mm3 (4.4-11.0)
[2023-11-16 12:37] LABS: ALB/GLOB Ratio 0.9 RATIO (0.9-2.4); AST(SGOT) 18 U/L (15-37); Alanine Aminotransfer ALT/SGPT 34 U/L (13-56); Albumin, Serum 3.7 g/dL (3.2-5.0); Alkaline Phosphatase 93 U/L (45-117); Anion Gap 6 (5-15); BUN 10 mg/dL (7-18); Calcium,Total 8.8 mg/dL (8.5-10.1); Chloride 109 mmol/L (98-107); Cholesterol 209 mg/dL (200); Creatinine, Serum 0.84 mg/dL (0.55-1.02); EST Glomerular Filtration Rate 81 mL/min (>60); Est Glom Filt Rate - Afr Amer 98 mL/min (>60); Globulin 3.9 g/dL (2.2-4.2); Glucose 97 mg/dL (74-106); High Density Lipoprotein 31 mg/dL; Potassium 4.2 mmol/L (3.5-5.1); Protein, Total 7.6 g/dL (6.4-8.2); Sodium Level 140 mmol/L (136-145); Triglycerides 103 mg/dL; Very Low Density Lipoprotein 21 mg/dL (5-40)
[2023-11-16 12:48] LABS: Microalbumin,Random Urine 36.7 mg/L (NO RANGE EST.); Microalbumin:Creatinine Ratio 11.2 mg/g CRE (<30 mg/g CRE)
[2023-11-16 13:21] LABS: Hemoglobin A1c 6.2 % (3.8-5.6)
== END | disposition home or self-care (01) ==
LOC: BIMLAB 08:13
PROVIDERS: PCP Internal Medicine; Visit Provider Internal Medicine
DX: E11.9 Type 2 diabetes mellitus without complications (principal); I10 Essential (primary) hypertension
CPT/HCPCS: 36415; 80053; 80061; 82043; 82570; 83036; 85025

== ENCOUNTER → 2024-05-16 | Outpatient (CLI) | payer BC, SELFPAY ==
[2024-05-16 12:36] LABS: Absolute Lymphocyte Count 2.56 X10^3/uL (0.83-4.51); Absolute Neutrophil Count 4.1 X10^3/uL (2.0-7.7); Basophil# 0.04 X10^3/uL; Basophil% 0.6 % (0-1); Eosinophil# 0.07 X10^3/uL; Hematocrit 41.4 % (37-47); Hemoglobin 12.6 g/dL (12.0-15.0); Lymphocyte # 2.56 X10^3/ul (0.83-4.51); Lymphocyte % 36.1 % (19-41); Mean Corp Hgb Conc 30.4 g/dL (32-36); Mean Corpuscular Hgb 25.7 pg (27.0-32.0); Mean Corpuscular Volume 84.3 fL (81-99); Mean Platelet Vol. 11.2 fl (6.2-12.0); Monocyte# 0.31 X10^3/uL; Monocyte% 4.4 % (0-10); NRBC Flagged by Analyzer 0 % (0-5); Neutrophil % 57.8 % (47-70); Platelet Count 307 K/mm3 (150-450); RBC Distribution Width CV 14.6 % (11.6-14.6); RBC Distribution Width SD 44.9 fl (35.1-43.9); Red Blood Count 4.91 M/mm3 (4.2-5.4); White Blood Count 7.1 K/mm3 (4.4-11.0)
[2024-05-16 12:58] LABS: AST(SGOT) 13 U/L (15-37); Alanine Aminotransfer ALT/SGPT 22 U/L (13-56); Albumin, Serum 3.8 g/dL (3.2-5.0); Alkaline Phosphatase 99 U/L (45-117); Anion Gap 5 (5-15); BUN 9 mg/dL (7-18); BUN/Creat Ratio 12.9 RATIO (10-20); Calcium,Total 8.8 mg/dL (8.5-10.1); Chloride 109 mmol/L (98-107); Cholesterol 187 mg/dL (200); EST Glomerular Filtration Rate 100 mL/min (>60); Est Glom Filt Rate - Afr Amer 121 mL/min (>60); Globulin 3.7 g/dL (2.2-4.2); Glucose 92 mg/dL (74-106); High Density Lipoprotein 36 mg/dL; Potassium 4.3 mmol/L (3.5-5.1); Protein, Total 7.5 g/dL (6.4-8.2); Sodium Level 139 mmol/L (136-145); Triglycerides 74 mg/dL; Very Low Density Lipoprotein 15 mg/dL (5-40)
== END | disposition home or self-care (01) ==
LOC: BIMLAB 10:55
PROVIDERS: PCP Internal Medicine; Referring Provider Physician Assistant; Visit Provider Physician Assistant
DX: E78.5 Hyperlipidemia, unspecified (principal); I10 Essential (primary) hypertension
CPT/HCPCS: 36415; 80053; 80061; 85025

== ENCOUNTER → 2024-08-20 | Outpatient (CLI) | payer BC, SELFPAY ==
[2024-08-20 12:46] LABS: Cholesterol 148 mg/dL (200); High Density Lipoprotein 40 mg/dL; Triglycerides 92 mg/dL; Very Low Density Lipoprotein 18 mg/dL (5-40)
== END | disposition home or self-care (01) ==
LOC: BIMLAB 11:08
PROVIDERS: PCP Internal Medicine; Visit Provider Internal Medicine
DX: E78.5 Hyperlipidemia, unspecified (principal)
CPT/HCPCS: 36415; 80061

== ENCOUNTER → 2025-05-25 | Outpatient (CLI) | payer BC, SELFPAY ==
--- OUTSIDE RECORDS SUMMARY | 2025-05-25 07:46 | XMS RPT_ITS | CCD ---
Author Organization [facility] ion [facility] Care Team Providers Care Director Career Name Role Phone JOSEPH NERI Unavailable Unavailable HALLEJOSEPH SUAREZ Unavailable Unavailable Dr. Manju Brwester Attending Provider [phone] Dr. Manju Brewster Attending Provider [phone] Dr. Manju Brewster Primary Care Provider Dr. Manju Brewster Referring Provider 1([facility] -[phone] Silvia READING INTERVENTION TEACHER, KARMEN Ching Attending Provider [phone] Dr. Manju Brewster Primary Care Provider Dr. Manju Brewster Referring Provider [phone] Dr. Manju Brewster Attending Provider [phone] Dr. Manju Brewster Primary Care Provider Dr. Manju Brewster Attending Provider 1([facility]) -[phone] Dr. Manju Brewster Referring Provider [phone] Manju Brewster Primary Care Unavailable Manju Brewster Attending Unavailable Ney, Manju Primary Care Unavailable Manju Brewster Attending Unavailable Manju Brewster Referring Unavailable Ney, Manju Primary Care Unavailable Cherri Moeller Attending Unavailable Ney, Manju Referring Unavailable Manju Brewster Attending Unavailable Ney, Manju Referring Unavailable Colfax, Manju Primary Care Unavailable Ney, Manju Primary Care Unavailable Lex Monzon Attending Unavailable Colfax, Manju Referring Unavailable Colfax, Manju Primary Care Unavailable Lex Monzon Attending Unavailable Lex Monzon Referring Unavailable Ney BAKER, Dr. Nunes Primary Care Provider Ney BAKER, Dr. Nunes Attending Provider Ney BAKER, Dr. Nunes Referring Provider Allergies Allergy Classification Reported Allergen(s) Allergy Type Date of Onset Reaction(s) Facility (1 source) acetaminophen / HYDROcodone; Translations: [HYDROCODONE-ACET AMINOPHEN] Drug Allergy 5 AOF [facility] Repository (9 sources) Latex; Translations: [LATEX] Propensity to adverse reactions to drug (disorder) 9 AOF, Rash [facility] Repository (7 sources) Acetaminophen Drug Allergy 3 Nausea/Vom/Sera [facility] (8 sources) HYDROcodone; Translations: [hydrocodone bitartrate] Drug Allergy 3 Nausea/Vom/Sera [facility] (1 source) Acetaminophen Drug Allergy 5 [facility] Repository Medications Current Medications Medication Drug Class(es) Dates Sig (Normalized) Sig (Original) Blood-Glucose Meter (Freestyle Lite Meter) kit (5 sources) Start: 11-25-2022 Blood-Glucose Meter (Freestyle Lite Meter) kit Active 1 NMA MC DAILY November 25, 2022 1:00am Start: 11-25-2022 Blood-Glucose Meter (Freestyle Lite Meter) kit Active 1 EACH MC DAILY November 25, 2022 12:00am Start: 11-25-2022 Blood-Glucose Meter (Freestyle Lite Meter) kit Active 1 EACH MC DAILY November 25, 2022 1:00am lisinopril 10 mg oral tablet (12 sources) Angiotensin Converting Enzyme Inhibitor Start: 06-28-2023 End: 09-21-2024 take 1 tablet by mouth once daily Lisinopril 10 mg tablet Active 10 mg PO DAILY September 21, 2024 1:35pm meclizine hydrochloride 12.5 mg oral tablet (1 source) Antiemetic Start: 08-20-2024 take 1 tablet by mouth three times daily as needed for dizziness Meclizine 12.5 mg tablet Active 12.5 mg PO THREE TIMES A DAY as needed for dizziness August 20, 2024 1:00am rosuvastatin calcium 10 mg oral tablet (3 sources) HMG-CoA Reductase Inhibitor Start: 05-16-2024 End: 12-09-2024 take 1 tablet by mouth once daily Rosuvastatin 10 mg tablet Active 10 mg PO DAILY December 09, 2024 7:17pm Start: 05-16-2024 End: 05-16-2024 take 1 tablet by mouth once daily Rosuvastatin 5 mg tablet Discontinued 5 mg PO DAILY May 16, 2024 12:00am May 16, 2024 1:59pm Semaglutide (3 sources) Start: 11-16-2023 Semaglutide Ac tive 2 MG SC EVERY WEEK November 16, 2023 8:09am for 4 weeks Start: 07-05-2023 End: 07-14-2023 Semaglutide Discontinued 2 M G SC EVERY WEEK July 05, 2023 4:45pm July 14, 2023 1:14pm for 4 weeks Start: 05-15-2023 End: 07-05-2023 Semaglutide Discontinued 2 M G SC EVERY WEEK May 15, 2023 10:04am July 05, 2023 4:45pm for 4 weeks Semaglutide 2 mg/dose (8 mg/ 3 mL) pen injector (9 sources) Start: 12-14-2024 Semaglutide 2 mg/dose (8 mg/3 mL) pen injector Active 2 mg SC EVERY WEEK December 14, 2024 2:35pm for 4 weeks Start: 11-09-2024 End: 12-14-2024 Semaglutide 2 mg/dose (8 mg/ 3 mL) pen injector Discontinued 2 mg SC EVERY WEEK November 09, 2024 11:09am December 14, 2024 2:35pm for 4 weeks Start: 09-03-2024 End: 11-09-2024 Semaglutide 2 mg/dose (8 mg/ 3 mL) pen injector Discontinued 2 mg SC EVERY WEEK September 03, 2024 8:55am November 09, 2024 11:09am for 4 weeks Start: 07-24-2024 End: 09-03-2024 Semaglutide 2 mg/dose (8 mg/ 3 mL) pen injector Discontinued 2 mg SC EVERY WEEK 3 July 24, 2024 10:54am September 03, 2024 8:55am for 4 weeks Start: 05-08-2024 End: 07-24-2024 Semaglutide 2 mg/dose (8 mg/ 3 mL) pen injector Discontinued 2 mg SC EVERY WEEK 3 May 08, 2024 4:00pm July 24, 2024 10:54am for 4 weeks Start: 2024 End: 05-08-2024 Semaglutide 2 mg/dose (8 mg/ 3 mL) pen injector Discontinued 2 mg SC EVERY WEEK 3 2024 9:15am May 08, 2024 4:00pm for 4 weeks Start: 11-16-2023 End: 2024 Semaglutide 2 mg/dose (8 mg/ 3 mL) pen injector Discontinued 2 mg SC EVERY WEEK 3 November 16, 2023 9:09am 2024 9:15am for 4 weeks Start: 07-05-2023 End: 07-14-2023 Semaglutide 2 mg/dose (8 mg/ 3 mL) pen injector Discontinued 2 mg SC EVERY WEEK 3 July 05, 2023 5:45pm July 14, 2023 2:14pm for 4 weeks Start: 05-15-2023 End: 07-05-2023 Semaglutide 2 mg/dose (8 mg/ 3 mL) pen injector Discontinued 2 mg SC EVERY WEEK 3 May 15, 2023 11:04am July 05, 2023 5:45pm for 4 weeks Completed/Discontinued Medications Medication Drug Class(es) Dates Sig (Normalized) Sig (Original) acetaminophen 325 mg / oxyCODONE hydrochloride 5 mg oral tablet (7 sources) Opioid Agonist Start: 02-04-2019 End: 02-11-2019 Oxycodone-Acetamino phen 1 TABLET tablet Discontinued 1 - 2 {tbl} PO EVERY 8 HOURS as needed for Moderate-Severe pain 15 04February 04, 2019 12:00am February 10, 2019 12:00am February 11, 2019 12:07am Start: 02-04-2019 End: 02-11-2019 take 1 tablet by mouth every eight hours Oxycodone-Acetaminophen Discontinued 1 - 2 TABLET PO EVERY 8 HOURS 15 04February 03, 2019 11:00pm February 10, 2019 11:07pm Aspirin (7 sources) Platelet Aggregation Inhibitor, Nonsteroidal Anti-inflammatory Drug Start: 02-01-2019 End: 02-04-2019 Aspirin Discontinued 1 {tbl} PO DAILY February 01, 2019 12:00am February 04, 2019 11:23am Start: 02-01-2019 End: 02-04-2019 take 1 tablet by mouth once daily Aspirin Discontinued 1 TABLET PO DAILY February 01, 2019 12:00am February 04, 2019 11:23am Start: 02-01-2019 End: 02-04-2019 take 1 tablet by mouth once daily Aspirin Discontinued 1 TABLET PO DAILY January 31, 2019 11:00pm February 04, 2019 10:23am docusate sodium 100 mg oral capsule (7 sources) Start: 02-04-2019 End: 10-12-2022 take 1 capsule by mouth twice daily as needed for constipation Docusate Sodium (Colace) 100 MG capsule Discontinued 100 mg PO TWICE DAILY NEEDED as needed for Constipation 60 February 04, 2019 12:00am October 12, 2022 10:59am ferrous sulfate 325 mg oral tablet (7 sources) Start: 02-04-2019 End: 10-12-2022 take 1 tablet by mouth every other day Ferrous Sulfate (Iron) 325 MG tablet Discontinued 325 mg PO EVERY OTHER DAY 15 February 04, 2019 12:00am October 12, 2022 10:59am ibuprofen 600 mg oral tablet (7 sources) Nonsteroidal Anti-inflammatory Drug Start: 02-04-2019 End: 10-12-2022 take 1 tablet by mouth every six hours as needed for pain Ibuprofen 600 MG tablet Discontinued 600 mg PO EVERY 6 HOURS as needed for Pain 60 February 04, 2019 12:00am October 12, 2022 10:59am Fwr272-Eohb Fum-Folic () 1 EACH tablet (7 sources) Start: 12-18-2015 End: 10-12-2022 take 1 tablet by mouth once daily Gor847-Qibm Fum-Folic () 1 EACH tablet Discontinued 1 NMA PO DAILY December 18, 2015 12:00am October 12, 2022 11:00am Start: 12-18-2015 End: 10-12-2022 take 1 tablet by mouth once daily Icn579-Goam Fum-Folic () 1 EACH tablet Discontinued 1 EACH PO DAILY December 18, 2015 12:00am October 12, 2022 11:00am Start: 12-18-2015 End: 10-12-2022 take 1 tablet by mouth once daily Phg937-Jntt Fum-Folic () 1 EACH tablet Discontinued 1 EACH PO DAILY December 17, 2015 11:00pm October 12, 2022 10:00am Glhhoffhh-Yquxkapkq-Pztjjtwf dr (6 sources) Start: 08-02-2024 End: 08-20-2024 Srgpghzen-Suqhaunem-Ytdiould dr (Myfembree) 40-1-0.5 mg tablet Discontinued 1 {tbl} PO DAILY August 02, 2024 11:32am August 20, 2024 11:31am Start: 08-02-2024 End: 08-02-2024 Rqeljxbdp-Zyzxypdsa-Qeitgvin dr (Myfembree) 40-1-0.5 mg tablet Discontinued 1 {tbl} PO DAILY August 02, 2024 10:49am August 02, 2024 11:32am Start: 06-14-2023 Relugolix-Estr adiol-Norethindr (Myfembree) 40-1-0.5 mg tablet Active 1 {tbl} PO DAILY June 14, 2023 10:14am Start: 06-14-2023 take 1 tablet by alfonso th once daily Fvslbrziq-Efukenpvi-Ogooqxjvtd (Myfembre e) 40-1-0.5 mg tablet Active 1 TABLET PO DAILY June 14, 2023 9:14am Start: 06-08-2023 End: 06-14-2023 Glxpbtcmf-Hlppezruo-Yzmozoht dr (Myfembree) 40-1-0.5 mg tablet Discontinued 1 {tbl} PO DAILY June 08, 2023 12:00am June 14, 2023 10:15am Start: 06-08-2023 End: 06-14-2023 take 1 tablet by mouth once daily Czkgxyyqm-Gdztaquqz-Ustjacjenk (Myfembre e) 40-1-0.5 mg tablet Discontinued 1 TABLET PO DAILY June 07, 2023 11:00pm June 14, 2023 9:15am 0.25 mg, 0.5 mg dose 1.5 ml semaglutide 1.34 mg/ml pen injector (20 sources) Start: 11-25-2022 End: 01-18-2023 Semaglutide (Ozempic) 0.25 m g or 0.5 mg(2 mg/1.5 mL) pen injector Discontinued 0.5 mg SC EVERY WEEK 3 December 24, 2022 8:17am January 18, 2023 8:25am for 4 weeks Start: 10-18-2022 End: 11-25-2022 Semaglutide (Ozempic) 0.25 m g or 0.5 mg(2 mg/1.5 mL) pen injector Discontinued 0.25 mg SC EVERY WEEK 1.5 October 19, 2022 1:00pm November 25, 2022 9:47am for 4 weeks Semaglutide (16 sources) Start: 10-12-2023 End: 11-16-2023 Semaglutide 1 mg/dose (4 mg/ 3 mL) pen injector Discontinued 1 mg SC EVERY WEEK 9 October 12, 2023 4:59pm November 16, 2023 9:10am for 4 weeks Start: 10-12-2023 End: 11-16-2023 Semaglutide Discontinued 1 M G SC EVERY WEEK 9 October 12, 2023 3:59pm November 16, 2023 8:10am for 4 weeks Start: 07-31-2023 End: 10-12-2023 Semaglutide 1 mg/dose (4 mg/ 3 mL) pen injector Discontinued 1 mg SC EVERY WEEK 9 July 31, 2023 7:14pm October 12, 2023 4:59pm for 4 weeks Start: 07-31-2023 End: 10-12-2023 Semaglutide Discontinued 1 M G SC EVERY WEEK July 31, 2023 6:14pm October 12, 2023 3:59pm for 4 weeks Start: 07-14-2023 End: 07-31-2023 Semaglutide 1 mg/dose (4 mg/ 3 mL) pen injector Discontinued 1 mg SC EVERY WEEK 3 July 14, 2023 2:13pm July 31, 2023 7:14pm for 4 weeks Start: 07-14-2023 End: 07-31-2023 Semaglutide Discontinued 1 M G SC EVERY WEEK 3 July 14, 2023 1:13pm July 31, 2023 6:14pm for 4 weeks Start: 03-28-2023 End: 05-15-2023 Semaglutide 1 mg/dose (4 mg/ 3 mL) pen injector Discontinued 1 mg SC EVERY WEEK March 28, 2023 3:42pm May 15, 2023 11:04am for 4 weeks Start: 03-28-2023 End: 05-15-2023 Semaglutide Discontinued 1 M G SC EVERY WEEK March 28, 2023 2:42pm May 15, 2023 10:04am for 4 weeks Start: 03-28-2023 Semaglutide Ac tive 1 MG SC EVERY WEEK March 28, 2023 3:42pm for 4 weeks Start: 03-23-2023 End: 03-28-2023 Semaglutide 1 mg/dose (4 mg/ 3 mL) pen injector Discontinued 1 mg SC EVERY WEEK March 23, 2023 8:46am March 28, 2023 3:42pm for 4 weeks Start: 03-23-2023 End: 03-28-2023 Semaglutide Discontinued 1 M G SC EVERY WEEK March 23, 2023 7:46am March 28, 2023 2:42pm for 4 weeks Start: 03-23-2023 End: 03-28-2023 Semaglutide Discontinued 1 M G SC EVERY WEEK March 23, 2023 8:46am March 28, 2023 3:42pm for 4 weeks Start: 01-18-2023 End: 03-23-2023 Semaglutide (Ozempic) 1 mg/d ose (4 mg/3 mL) pen injector Discontinued 1 mg SC EVERY WEEK January 18, 2023 8:20am March 23, 2023 8:46am for 4 weeks Start: 01-18-2023 End: 03-23-2023 Semaglutide (Ozempic) 1 mg/d ose (4 mg/3 mL) pen injector Discontinued 1 MG SC EVERY WEEK January 18, 2023 7:20am March 23, 2023 7:46am for 4 weeks Start: 01-18-2023 End: 03-23-2023 Semaglutide (Ozempic) 1 mg/d ose (4 mg/3 mL) pen injector Discontinued 1 MG SC EVERY WEEK January 18, 2023 8:20am March 23, 2023 8:46am for 4 weeks Start: 01-18-2023 Semaglutide (O zempic) 1 mg/dose (4 mg/3 mL) pen injector Active 1 MG SC EVERY WEEK January 18, 2023 8:20am for 4 weeks Problems Active Problems Problem Classification Problem Date Documented Date Episodic/Chronic Abdominal pain (9 sources) Pain in pelvis; Translations: [Pelvic and perineal pain] 01-03-2023 Episodic Administrative/social admission (4 sources) Persons encountering health services in other specified circumstances; Translations: [Other reasons for seeking consultation] 10-12-2022 Episodic Benign neoplasm of uterus (9 sources) Uterine leiomyoma; Translations: [Leiomyoma of uterus, unspecified] 01-03-2023 Episodic Comment on above: X1 <2cm Diabetes mellitus without complication (15 sources) Type 2 diabetes mellitus; Translations: [Type 2 diabetes mellitus without complications] Onset: 02-20-2025 10-18-2022 Chronic Diabetes or abnormal glucose tolerance complicating ; childbirth; or the puerperium (4 sources) Personal history of gestational diabetes; Translations: [Personal history of gestational diabetes] 10-12-2022 Episodic Disorders of lipid metabolism (8 sources) Pure hypercholesterolemia, unspecified; Translations: [Pure hypercholesterolemia] Onset: 09-18-2024 10-12-2022 Chronic Endometriosis (10 sources) Endometriosis, unspecified; Translations: [Endometriosis (clinical)] Onset: 12-30-2017 01-03-2023 Chronic Comment on above: surgery, laser 2017 [facility] Essential hypertension (5 sources) Hypertensive disorder; Translations: [Essential (primary) hypertension] Onset: 02-20-2025 06-08-2023 Chronic Menstrual disorders (20 sources) Excessive and frequent menstruation with regular cycle; Translations: [Excessive or frequent menstruation] Onset: 09-10-2024 10-12-2022 Chronic Comment on above: failed OCP-several k inds, mood changes, EMB pdisordered. Unable to insert mirena. Consult JV to discuss hysterectomy--deemed not great candidate d/t history-started on myfembree. Other circulatory disease (7 sources) Elevated blood-pressure reading, without diagnosis of hypertension; Translations: [Elevated blood pressure reading without diagnosis of hypertension] 10-12-2022 Episodic Other nutritional; endocrine; and metabolic disorders (10 sources) Morbid (severe) obesity due to excess calories; Translations: [Morbid obesity] 10-12-2022 Chronic Other nutritional; endocrine; and metabolic disorders (1 source) Body mass index 40+ - severely obese; Translations: [Morbid (severe) obesity due to excess calories] 02-20-2025 Chronic Residual codes; unclassified (4 sources) Immunization not carried out because of patient refusal; Translations: [Vaccination not carried out because of patient refusal] 10-12-2022 Episodic Residual codes; unclassified (4 sources) History of laparoscopy; Translations: [Other specified postprocedural states] 01-03-2023 Episodic Comment on above: 2018 laser, endometr iosis Past or Other Problems Problem Classification Problem Date Documented Da te Episodic/Chronic Conditions associated with dizziness or vertigo (1 source) Dizziness and giddiness; Translations: [Dizziness and giddiness] Onset: 08-20-2024 Episodic Results Test Name Value Interpretation Reference Range Facility Internal Medicine Office Vis iton 02-19-2025 Internal Medicine Office Visit [facility] [address] [place] [address] OFFICE VISIT Date of Service: 02/20/25 MR#: [id number] Acct: [id number] Name: WILIAM RATLIFF Rep #: [id number] : 1985 Provider: Dr. Manju bell MD Age/Sex: 40/F Location: [facility] Status: Signed Intake Vital Signs 08/20/24 10:31 09/10/24 10:58 02/20/25 07:37 Height 5 ft 5 in 5 ft 5 in 5 ft 5 in Weight: 269 lb BMI 44.7 BP 138/84 H Blood Pressure Location Lt brachial Position Sitting Respiration 16 Pulse 84 Pulse Source Monitor Temp 96.8 F L Temp Source Temporal Pulse Oximetry (%) 98 Oxygen Delivery Method room air Intake Visit Reasons: 6 M FU Chief Complaint: fu 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 Accompanied by: Self Is patient in pain?: No Allergies latex Allergy (Verified 02/20/25 07:31) Rash acetaminophen (From Vicodin) Adverse Reaction (Verified 02/20/25 07:31) Nausea/Vom/Diarrhea hydrocodone bitartrate (From Vicodin) Adverse Reaction (Verified 02/20/25 07:31) Nausea/Vom/Diarrhea Medications ???Medication ???Instructions ???Recorded ???Confirmed ???Type blood-glucose meter (FreeStyle 1 ea miscellaneous DAILY #1 ea 06/1102/20/25 Rx Lite Meter kit) lancets 28 gauge (FreeStyle #100 ea 11/25/22 02/20/25 Rx Lancets) blood sugar diagnostic (FreeStyle #100 ea 03/28/23 02/20/25 Rx Lite Strips) relugolix 40 mg-estradiol 1 1 tab PO DAILY #90 tabs 06/14/23 0 02/20/25 Rx mg-norethindrone acetate 0.5 mg tablet (Myfembree) meclizine 12.5 mg tablet 12.5 mg PO TID PRN dizziness #20 1 10/21/23 02/20/25 Rx tabs lisinopril 10 mg tablet 10 mg PO DAILY #90 TABLETS 5 02/20/25 Rx rosuvastatin 10 mg tablet 10 mg PO DAILY #90 tabs 12/09/24 0 02/20/25 Rx semaglutide 2 mg/dose (8 mg/3 mL) 2 mg (0.75 mL) subcut QWEEK #3 mL 12/14/24 02/20/25 Rx subcutaneous pen injector Patient : No Have you fallen in the past year?: No PFSH Medical History Endometriosis History of endometriosis Liver disease Gestational diabetes History of blood transfusion Fracture Anemia Surgical History S/P laparoscopic procedure Tubal ligation status Tendon injury History of delivery H/O dilation and curettage Family History Grandmother Arthritis Diabetes Heart disease Melanoma Grandfather Arthritis Diabetes Cancer Lung Myocardial infarction Father Melanoma Unknown Hypertension Hx of heart artery stent Social History (Updated 06/04/25 @ 07:[address] Manju Brewster MD) household members: family current occupational status: employed current occupation: [employer] Smoking Status: Former smoker quit date: 10/20/11 pack-years: 2 Electronic Cigarette Use: not used alcohol intake: current alcohol intake frequency: holidays/special occasions only substance use type: does not use what type of physical activity do you participate in: none seatbelt use: always do you feel safe at home: Yes additional social history: -Ankur D[employer] Questionnaire PQH-9 BMS Over the last 2 weeks, how often have you been bothered by any of the following problems? 1. Little interest or pleasure in doing things: not at all 2. Feeling down, depressed, or hopeless: not at all 3. Trouble falling or staying asleep, or sleeping too much: not at all 4. Feeling tired or having little energy: not at all 5. Poor appetite or overeating: not at all 6. Feeling bad about yourself - or that you are a failure or have let yourself and your family down: not at all 7. Trouble concentrating on things, such as reading the newspaper or watching television: not at all 8. Moving or speaking so slowly that other people could have noticed? - Or the opposite - being so fidgety or restless that you have been moving around a lot more than usual: not at all 9. Thoughts that you would be better off or of hurting yourself in some way: not at all Total score: 0 If you checked off any problems, how difficult have these problems made it for you to do your work, take care of things at home, or get along with other people?: not difficult at all Source: Developed by Drs. Zay Denise, Kelly Melvin, Farhan Cooley and colleagues, with an educational urban from [employer]. HPI HPI Chief Complaint: fu Details: WILIAM RATLIFF, is a 40 F who presents to the office today for a follow up.??? She is coming due for some routine blood work and is up to date on her screening.??? She isn't due for any immunizations.??? She doesn't smoke and does not need refills.??? She reports she is eating healthy and reports she has been exercising. The (more content not included)... Normal [facility] Production Superintendent Hydro Office Visit Reporton 09-10-2024 Production Superintendent Hydro Office Visit Report [facility] [address], [address] [place] [address] OFFICE VISIT Date of Service: 09/10/24 MR#: [id number] Acct: [id number] Name: WILIAM RATLIFF Rep #: [id number] : 1985 Provider: KARMEN Mosqueda Age/Sex: 39/F [place] [facility] [place]: Signed Intake Vital Signs 05/16/24 09:59 08/20/24 10:31 09/10/24 10:53 09/10/24 10:58 Height 5 ft 5 in 5 ft 5 in 5 ft 5 in 5 ft 5 in Weight: 261 lb BMI 43.4 BP 120/68 116/80 Blood Pressure Location Lt brachial Position Sitting Respiration 16 Pulse 89 Pulse Source Monitor Temp 97.0 F L Pulse Oximetry (%) 98 Oxygen Delivery Method room air 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) Chief Complaint: annual 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 Is patient in pain?: No Allergies latex Allergy (Verified 09/10/24 10:52) Rash acetaminophen (From Vicodin) Adverse Reaction (Verified 09/10/24 10:52) Nausea/Vom/Diarrhea hydrocodone bitartrate (From Vicodin) Adverse Reaction (Verified 09/10/24 10:52) Nausea/Vom/Diarrhea Medications ???Medication ???Instructions ???Recorded ???Confirmed ???Type blood-glucose meter (FreeStyle 1 ea miscellaneous DAILY #1 ea 11/25/22 09/10/24 Rx Lite Meter kit) lancets 28 gauge (FreeStyle #100 ea 11/25/22 09/10/24 Rx Lancets) blood sugar diagnostic (FreeStyle #100 ea 03/28/23 09/10/24 Rx Lite Strips) relugolix 40 mg-estradiol 1 1 tab PO DAILY #90 tabs 06/14/23 09/10/24 Rx mg-norethindrone acetate 0.5 mg tablet (Myfembree) lisinopril 10 mg tablet 10 mg PO DAILY #90 TABLETS 04/12/24 09/10/24 Rx rosuvastatin 10 mg tablet 10 mg PO DAILY #90 tabs 05/16/24 09/10/24 Rx meclizine 12.5 mg tablet 12.5 mg PO TID PRN dizziness #20 08/20/24 09/10/24 Rx tabs semaglutide 2 mg/dose (8 mg/3 mL) 2 mg (0.75 mL) subcut QWEEK #3 mL 09/03/24 09/10/24 Rx subcutaneous pen injector Post menopausal: No Patient : No : No Control Method: tubal PFSH Medical History Endometriosis History of endometriosis Liver disease Gestational diabetes History of blood transfusion Fracture Anemia Surgical History S/P laparoscopic procedure Tubal ligation status Tendon injury History of delivery H/O dilation and curettage Family History Grandmother Arthritis Diabetes Heart disease Melanoma Grandfather Arthritis Diabetes Cancer Lung Myocardial infarction Father Melanoma Unknown Hypertension Hx of heart artery stent Social History household members: family current occupational status: employed current occupation: [employer] Smoking Status: Former smoker quit date: 10/20/11 pack-years: 2 Electronic Cigarette Use: not used alcohol intake: current alcohol intake frequency: holidays/special occasions only substance use type: does not use what type of physical activity do you participate in: none seatbelt use: always do you feel safe at home: Yes additional social history: -Ankur Duggan [employer] History 5 Elective abortions Hx Para 4 Spontaneous abortions Hx # Term Pregnancies Ectopic pregnancies Hx # Pregnancies Multiple births # of living children 4 Past Pregnancies Del. Date Name GA/Weeks Outcome Route Bth Weight Gen Labor Lgth Anesthesia Del Locatn Provider FOB Unknown Bill 12/01/2009 Unknown [place] 07/22/2012 Unknown [place] 12/18/2015 Unknown [place] 02/01/2019 HPI Encounter for routine gynecological examination Details: WILIAM RATLIFF is a 39 year old who presents for annual exam. She continues to take Myfembree and happy with this. Reports no side effects noted from this; reports her blood counts have increased as well. She has not had a period since starting this. Doing well and would like to continue. BP has been stable. Last PAP: 2022; normal hpv neg History of abnormal PAP: no Last mammogram: age 41 History of abnormal mammogram: no Colon cancer screening: age 46 Other preventative health care screenings: Raven Brewster PCP. Female Reproductive History Questions: metorrhagia: No, sexually active: Yes (tubal), dyspareunia: No and PCB: No ROS Const Constitutional: Denies chills, fatigue, fever(s), headache(s) or weight loss Eyes Eyes: Denies change in vision ENT ENT: Denies dizziness Cardio Card: Denies palpitations Resp Resp: Denies cough GI GI: Denies abdominal pain, constipation or nausea : Denies difficulty voiding, dysuria, hematuria, nipple discharge, pelvic pain, prolapse symptoms, urinary incontinence, vaginal discharge, vaginal dr (more content not included)... Normal [facility] Lipid Profileon 08-20-2024 Cholesterol [Mass/Vol] 148 mg/dL Normal 200 [facility] Comment on above: Result Comment: <200 mg/dL Desirable 200-240 mg/dL Borderline >240 mg/dL High Risk Performed By: #### L 500.4100 #### [facility] [address] [facility] [address] Cholesterol in HDL [Mass/Vol] 40 mg/dL Normal [facility] Comment on above: Result Comment: The drugs N-Acetylcysteine and Metamizole may falsely depress this assay. Reference Range HDL <40 mg/dL Low HDL Cholesterol HDL >or= 60 mg/dL High HDL Cholesterol Performed By: #### L 500.4100 #### [facility] [address] [place], [address] Cholesterol in LDL [Mass/Vol] 90 mg/dL Normal 0-130 [facility] Comment on above: Performed By: #### L 500.4100 #### [facility] [address] [place], [address] Cholesterol in VLDL [Mass/Vol] 18 mg/dL Normal 5-40 [facility] Comment on above: Performed By: #### L 500.4100 #### [facility] [address] [place], [place], [address] Triglyceride [Mass/Vol] 92 mg/dL Normal [facility] Comment on above: Result Comment: The drugs N-Acetylcysteine and Metamizole may falsely depress this assay. Serum Triglycerides Reference Interval Normal <150 mg/dL Borderline high 150 - 199 mg/dL High 200 - 499 mg/dL Very High > or = 500 mg/dL Performed By: #### L 500.4100 #### [facility] [address] [place], [place], [address] Internal Medicine Office Vis iton 08-15-2024 Internal Medicine Office Visit [facility] [address] [place], [place] [address] OFFICE VISIT Date of Service: 08/20/24 MR#: [id number] Acct: [id number] Name: WILIAM RATLIFF Rep #: [id number] : 1985 Provider: Dr. Manju bell MD Age/Sex: 39/F Location: [facility] Status: Signed with Addenda ADDENDUM by Dr. 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: without penitentiary use Diabetes mellitus complication status: without complication Qualified Code(s): E11.9 - Type 2 diabetes mellitus without complications Orders: Orders Lipid Profile Today E78.5 - Hyperlipidemia, unspecified Referrals PT Referral R42 - Dizziness and giddiness Medications: New meclizine 12.5 mg PO TID PRN 20 tabs 0RF dizziness Plan Details Follow Up: 3-6 months Physical Exam Cardio Peripheral Pulses: dorsalis pedis pulses present bilateral 2+ Extremity General Extremity: monofilament exam perform Monofilament Exam Findings: L 1st metatarsals: normal, L 3rd metatarsals: normal, L 5th metatarsals: normal, L great toe: normal, L 3rd toe: normal, L 5th toe: normal, L medial mid foot: normal, L lateral mid foot: normal, L mid-heel: normal, L mid-dorsum foot: normal, R 1st metatarsals: normal, R 3rd metatarsals: normal, R 5th metatarsals: normal, R great toe: normal, R 3rd toe: normal, R 5th toe: normal, R medial mid foot: normal, R lateral mid foot: normal, R mid-heel: normal and R mid-dorsum foot: normal Skin Nails: normal 08/20/24 1457 Date Manju Brewster MD cc: * Signed Intake Vital Signs 05/16/24 09:59 08/20/24 10:31 Height 5 ft 5 in 5 ft 5 in BP 120/68 Blood Pressure Location Lt brachial Position Sitting Respiration 16 Pulse 89 Pulse Source Monitor Temp 97.0 F L Temp Source Temporal Pulse Oximetry (%) 98 Oxygen Delivery Method room air Intake Visit Reasons: 3 M FU Chief Complaint: 3 M FU 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 Accompanied by: Self Is patient in pain?: No Allergies latex Allergy (Verified 08/20/24 10:24) Rash acetaminophen (From Vicodin) Adverse Reaction (Verified 08/20/24 10:24) Nausea/Vom/Diarrhea hydrocodone bitartrate (From Vicodin) Adverse Reaction (Verified 08/20/24 10:24) Nausea/Vom/Diarrhea Medications ???Medication ???Instructions ???Recorded ???Confirmed ???Type blood-glucose meter (FreeStyle 1 ea miscellaneous DAILY #1 ea 11/25/22 08/20/24 Rx Lite Meter kit) lancets 28 gauge (FreeStyle #100 ea 11/25/22 08/20/24 Rx Lancets) blood sugar diagnostic (FreeStyle #100 ea 03/28/23 08/20/24 Rx Lite Strips) relugolix 40 mg-estradiol 1 1 tab PO DAILY #90 tabs 06/14/23 08/20/24 Rx mg-norethindrone acetate 0.5 mg tablet (Myfembree) lisinopril 10 mg tablet 10 mg PO DAILY #90 TABLETS 04/12/24 08/20/24 Rx rosuvastatin 10 mg tablet 10 mg PO DAILY #90 tabs 05/16/24 08/20/24 Rx semaglutide 2 mg/dose (8 mg/3 mL) 2 mg (0.75 mL) subcut QWEEK #3 mL 07/24/24 08/20/24 Rx subcutaneous pen injector meclizine 12.5 mg tablet 12.5 mg PO TID PRN dizziness #20 08/20/24 08/20/24 Rx tabs PFSH Medical History Endometriosis History of endometriosis Liver disease Gestational diabetes History of blood transfusion Fracture Anemia Surgical History S/P laparoscopic procedure Tubal ligation status Tendon injury History of delivery H/O dilation and curettage Family History Grandmother Arthritis Diabetes Heart disease Melanoma Grandfather Arthritis Diabetes Cancer Lung Myocardial infarction Father Melanoma Unknown Hypertension Hx of heart artery stent Social History household members: family current occupational status: employed current occupation: [employer] Smoking Status: Former smoker quit date: 10/20/11 pack-years: 2 Electronic Cigarette Use: not used alcohol intake: current alcohol intake frequency: holidays/special occasions only substance use type: does not use what type of physical activity do you participate in: none seatbelt use: always do you feel safe at home: Yes additional social history: -Ankur Willis HPI HPI Chief Complaint: 3 M FU Details: WILIAM RATLIFF, is a 39 F who presents to the office today for a follow up.??? She is up to date on her routine blood wo (more content not included)... Normal [facility] CBC W/Diff, Automatedon 04-20 Absolute Lymph 2.56 X10 3/uL Normal 0.83-4.51 [facility] Comment on above: Performed By: #### L 500.4100, L100.0100, L500.4050 #### [facility] [address] [place], [address] Absolute Neut 4.1 X10 3/uL Normal 2.0-7.7 [facility] Comment on above: Performed By: #### L 500.4100, L100.0100, L500.4050 #### [facility] [address] [place], [address] Basophils/100 WBC (Bld) 0.6 % Normal 0-1 [facility] Comment on above: Performed By: #### L 500.4100, L100.0100, L500.4050 #### [facility] [address] [place], [address] Eosinophils/100 WBC (Bld) 1.0 % Normal 0-5 [facility] Comment on above: Performed By: #### L 500.4100, L100.0100, L500.4050 #### [facility] [address] [place], [address] Erythrocyte distribution width (RBC) [Ratio] 14.6 % Normal 11.6-14.6 [facility] Comment on above: Performed By: #### L 500.4100, L100.0100, L500.4050 #### [facility] [address] [place], [address] Hematocrit (Bld) [Volume fraction] 41.4 % Normal 37-47 [facility] Comment on above: Performed By: #### L 500.4100, L100.0100, L500.4050 #### [facility] [address] [place], [address] Hemoglobin (Bld) [Mass/Vol] 12.6 g/dL Normal 12.0-15.0 [facility] Comment on above: Performed By: #### L 500.4100, L100.0100, L500.4050 #### [facility] [address] [place], [address] IG% 0.100 Normal 0.0-0.9 [facility] Comment on above: Result Comment: IG% - Immature Granulocytes (promyelocytes, myelocytes and metamyelocytes) > 1% indicates that a LEFT SHIFT is Present. Performed By: #### L 500.4100, L100.0100, L500.4050 #### [facility] [address] [place], [address] Lymphocytes/100 WBC (Bld) 36.1 % Normal 19-41 [facility] Comment on above: Performed By: #### L 500.4100, L100.0100, L500.4050 #### [facility] [address] [place], [address] MCH (RBC) [Entitic mass] 25.7 pg Low 27.0-32.0 [facility] Comment on above: Performed By: #### L 500.4100, L100.0100, L500.4050 #### [facility] [address] [place], [address] MCHC (RBC) [Mass/Vol] 30.4 g/dL Low 32-36 [facility] Comment on above: Performed By: #### L 500.4100, L100.0100, L500.4050 #### [facility] [address] [place], [address] MCV (RBC) [Entitic vol] 84.3 fL Normal 81-99 [facility] Comment on above: Performed By: #### L 500.4100, L100.0100, L500.4050 #### [facility] [address] [place], [address] Monocytes/100 WBC (Bld) 4.4 % Normal 0-10 [facility] Comment on above: Performed By: #### L 500.4100, L100.0100, L500.4050 #### [facility] [address] [place], [address] Neutrophils/100 WBC (Bld) 57.8 % Normal 47-70 [facility] Comment on above: Performed By: #### L 500.4100, L100.0100, L500.4050 #### [facility] [address] [place], [address] Nucleated RBC (Bld) [#/Vol] 0 10*3/uL Normal 0-5 [facility] Comment on above: Performed By: #### L 500.4100, L100.0100, L500.4050 #### [facility] [address] [place], [address] Platelet mean volume (Bld) [Entitic vol] 11.2 fL Normal 6.2-12.0 [facility] Comment on above: Performed By: #### L 500.4100, L100.0100, L500.4050 #### [facility] [address] [place], [address] Platelets (Bld) [#/Vol] 307 10*3/uL Normal 150-450 [facility] Comment on above: Performed By: #### L 500.4100, L100.0100, L500.4050 #### [facility] [address] [place], [address] RBC (Bld) [#/Vol] 4.91 10*6/uL Normal 4.2-5.4 [facility] Comment on above: Performed By: #### L 500.4100, L100.0100, L500.4050 #### [facility] [address] [place], [address] RDW SD 44.9 fl High 35.1-43.9 [facility] Comment on above: Performed By: #### L 500.4100, L100.0100, L500.4050 #### [facility] [address] [place], [address] WBC (Bld) [#/Vol] 7.1 10*3/uL Normal 4.4-11.0 [facility] Comment on above: Performed By: #### L 500.4100, L100.0100, L500.4050 #### [facility] [address] [place], [address] Comprehensive Metabolic [facility] 05-16-2024 Albumin [Mass/Vol] 3.8 g/dL Normal 3.2-5.0 [facility] Comment on above: Performed By: #### L 500.4100, L100.0100, L500.4050 #### [facility] [address] [place], [address] Albumin/Globulin [Mass ratio] 1.0 {ratio} Normal 0.9-2.4 [facility] Comment on above: Performed By: #### L 500.4100, L100.0100, L500.4050 #### [facility] [address] [place], [address] ALK P 99 U/L Normal 45-117 [facility] Comment on above: Performed By: #### L 500.4100, L100.0100, L500.4050 #### [facility] [address] [place], [address] ALT [Catalytic activity/Vol] 22 U/L Normal 13-56 [facility] Comment on above: Performed By: #### L 500.4100, L100.0100, L500.4050 #### [facility] [address] [place], [address] AST [Catalytic activity/Vol] 13 U/L Low 15-37 [facility] Comment on above: Performed By: #### L 500.4100, L100.0100, L500.4050 #### [facility] [address] [place], [address] Bilirubin [Mass/Vol] 0.40 mg/dL Normal 0.20-1.00 [facility] Comment on above: Result Comment: For patients on eltrombopag therapy, use of Dimension [place] TBIL is not recommended. Performed By: #### L 500.4100, L100.0100, L500.4050 #### [facility] [address] [place], [address] BUN/CRE 12.9 RATIO Normal 10-20 [facility] Comment on above: Performed By: #### L 500.4100, L100.0100, L500.4050 #### [facility] [address] [place], [address] CA,Total 8.8 mg/dL Normal 8.5-10.1 [facility] Comment on above: Performed By: #### L 500.4100, L100.0100, L500.4050 #### [facility] [address] [place], [address] Chloride [Moles/Vol] 109 mmol/L High 98-107 [facility] Comment on above: Performed By: #### L 500.4100, L100.0100, L500.4050 #### [facility] [address] [place], [address] CO2 [Moles/Vol] 25.0 mmol/L Normal 21.0-32.0 [facility] Comment on above: Performed By: #### L 500.4100, L100.0100, L500.4050 #### [facility] [address] [place], [address] Creatinine [Mass/Vol] 0.70 mg/dL Normal 0.55-1.02 [facility] Comment on above: Result Comment: The validity of the calculated GFR GFRAA in patients over 70 years has not been determined. Clinical correlation is essential. Performed By: #### L 500.4100, L100.0100, L500.4050 #### [facility] [address] [place], [address] EST GFR - AA 121 mL/min Normal >60 [facility] Comment on above: Result Comment: Afri can [place] GFR Calc Performed By: #### L 500.4100, L100.0100, L500.4050 #### [facility] [address] [place], [address] GAP 5 Normal 5-15 [facility] Comment on above: Performed By: #### L 500.4100, L100.0100, L500.4050 #### [facility] [address] [place], [address] GFR/1.73 sq M.predicted among non-blacks MDRD (S/P/Bld) [Vol rate/Area] 100 mL/min/{1.73_m2} Normal >60 [facility] Comment on above: Result Comment: Non- GFR Calc Performed By: #### L 500.4100, L100.0100, L500.4050 #### [facility] [address] [place], [address] Globulin (S) [Mass/Vol] 3.7 g/dL Normal 2.2-4.2 [facility] Comment on above: Performed By: #### L 500.4100, L100.0100, L500.4050 #### [facility] [address] [place], [address] Glucose [Mass/Vol] 92 mg/dL Normal 74-106 [facility] Comment on above: Performed By: #### L 500.4100, L100.0100, L500.4050 #### [facility] [address] [place], [address] Potassium [Moles/Vol] 4.3 mmol/L Normal 3.5-5.1 [facility] Comment on above: Performed By: #### L 500.4100, L100.0100, L500.4050 #### [facility] [address] [place], [address] Sodium [Moles/Vol] 139 mmol/L Normal 136-145 [facility] Comment on above: Performed By: #### L 500.4100, L100.0100, L500.4050 #### [facility] [address] [place], [address] T PROT 7.5 g/dL Normal 6.4-8.2 [facility] Comment on above: Performed By: #### L 500.4100, L100.0100, L500.4050 #### [facility] [address] [place], [address] Urea nitrogen [Mass/Vol] 9 mg/dL Normal 7-18 [facility] Comment on above: Performed By: #### L 500.4100, L100.0100, L500.4050 #### [facility] [address] [place], [address] Internal Medicine Office Vis denia 05-16-2024 Internal Medicine Office Visit [facility] [address] [place] [address] [place] [address] OFFICE VISIT Date of Service: 05/16/24 MR#: [id number] Acct: [id number] Name: WILIAM RATLIFF Rep #: [id number] : 1985 Provider: ARON Marks Age/Sex: 39/F Location: [facility] Status: Signed Intake Vital Signs 11/16/23 07:50 05/16/24 09:59 Height 5 ft 5 in 5 ft 5 in Weight: 262 lb 258 lb BMI 43.6 42.9 BP 118/72 132/84 H Blood Pressure Location Lt brachial Lt brachial Position Sitting Sitting Respiration 16 17 Pulse 82 91 Pulse Source Monitor Monitor Temp 97.7 F L 97.0 F L Temp Source Temporal Temporal Pulse Oximetry (%) 98 98 Oxygen Delivery Method room air room air Intake Visit Reasons: 6 M FU Chief Complaint: 6 M FU Is patient in pain?: No Allergies latex Allergy (Verified 05/16/24 09:58) Rash acetaminophen (From Vicodin) Adverse Reaction (Verified 05/16/24 09:58) Nausea/Vom/Diarrhea hydrocodone bitartrate (From Vicodin) Adverse Reaction (Verified 05/16/24 09:58) Nausea/Vom/Diarrhea Medications ???Medication ???Instructions ???Recorded ???Confirmed ???Type blood-glucose meter (FreeStyle 1 ea miscellaneous DAILY #1 ea 11/25/22 05/16/24 Rx Lite Meter kit) lancets 28 gauge (FreeStyle #100 ea 11/25/22 05/16/24 Rx Lancets) blood sugar diagnostic (FreeStyle #100 ea 03/28/23 05/16/24 Rx Lite Strips) relugolix 40 mg-estradiol 1 1 tab PO DAILY #90 tabs 06/14/23 05/16/24 Rx mg-norethindrone acetate 0.5 mg tablet (Myfembree) lisinopril 10 mg tablet 10 mg PO DAILY #90 TABLETS 04/12/24 05/16/24 Rx semaglutide 2 mg/dose (8 mg/3 mL) 2 mg (0.75 mL) subcut QWEEK #3 mL 05/08/24 05/16/24 Rx subcutaneous pen injector rosuvastatin 5 mg tablet 5 mg PO DAILY #90 tabs 05/16/24 05/16/24 Rx PFSH Medical History Endometriosis History of endometriosis Liver disease Gestational diabetes History of blood transfusion Fracture Anemia Surgical History S/P laparoscopic procedure Tubal ligation status Tendon injury History of delivery H/O dilation and curettage Family History (Updated 05/16/24 @ 10:10 by Tammi Gunter LPN) Grandmother Arthritis Diabetes Heart disease Melanoma Grandfather Arthritis Diabetes Cancer Lung Myocardial infarction Father Melanoma Unknown Hypertension Hx of heart artery stent Social History household members: family current occupational status: employed current occupation: [employer] Smoking Status: Former smoker quit date: 10/20/11 pack-years: 2 Electronic Cigarette Use: not used alcohol intake: current alcohol intake frequency: holidays/special occasions only substance use type: does not use what type of physical activity do you participate in: none seatbelt use: always do you feel safe at home: Yes additional social history: -[employer]kur [employer] HPI HPI Chief Complaint: 6 M FU Details: WILIAM RATLIFF, is a 39 F who presents to the office today for 6 month f/u for her diabetes and HTN. Patient does have a pretty big family history of diabetes / HTN. She has been on the semaglutide for about a year now. She states that she saw some weight loss that was more prominant initially at the same time has slowed down over time. She states that she definitely has noticed that her appetite has decreased with time. She does not have a regular exercise routine especially during the summer with her childrens sports / activities at the same time she tries to stay active as much as she can. She states that her biggest dietary issue is her carbohydrates. She loves carbohydrate foods and knows she eats too much of them. She used to be a heavy pop drinker but has really decreased that only having pop every once in a while. Patient does no use nicotine She has minimal caffeine intake She has not seen appliance technician. She denies any neuropathy symptoms. She does do feet checks She sees eye doctor annually (wears glasses all the time). No recent changes. She does take a baby ASA She denies any current symptoms such as chest pains / pressures, shortness of breath, headaches, visual changes, diarrhea, constipation, reflux, indigestion/heart burn, nausea or vomiting. ROS Const Constitutional: No body ache, chills, excessive sweating, fatigue, fever(s), frequent falls, headache(s), snoring, weight change, sleep problems, abnormal sleep pattern or change in appetite Eyes Eyes: No blurry vision, change in vision, eye pain or Light sensitivity ENT ENT: No abnormal hearing, ear or mastoid pain, tinnitus, nasal congestion, headache(s), neck pain or sore throat Resp Respiratory: No cough, shortness (more content not included)... Normal [facility] Lipid Profileon 05-16-2024 Cholesterol [Mass/Vol] 187 mg/dL Normal 200 [facility] Comment on above: Result Comment: <200 mg/dL Desirable 200-240 mg/dL Borderline >240 mg/dL High Risk Performed By: #### L 500.4100, L100.0100, L500.4050 #### [facility] [address] [place], [address] Cholesterol in HDL [Mass/Vol] 36 mg/dL Low [facility] Comment on above: Result Comment: The drugs N-Acetylcysteine and Metamizole may falsely depress this assay. Reference Range HDL <40 mg/dL Low HDL Cholesterol HDL >or= 60 mg/dL High HDL Cholesterol Performed By: #### L 500.4100, L100.0100, L500.4050 #### [facility] [address] [place], [address] Cholesterol in LDL [Mass/Vol] 136 mg/dL High 0-130 [facility] Comment on above: Performed By: #### L 500.4100, L100.0100, L500.4050 #### [facility] [address] [place], [address] Cholesterol in VLDL [Mass/Vol] 15 mg/dL Normal 5-40 [facility] Comment on above: Performed By: #### L 500.4100, L100.0100, L500.4050 #### [facility] [address] [place], [address] Triglyceride [Mass/Vol] 74 mg/dL Normal [facility] Comment on above: Result Comment: The drugs N-Acetylcysteine and Metamizole may falsely depress this assay. Serum Triglycerides Reference Interval Normal <150 mg/dL Borderline high 150 - 199 mg/dL High 200 - 499 mg/dL Very High > or = 500 mg/dL Performed By: #### L 500.2720, L100.0100, L500.4050 #### [facility] [address] [place], [address] Absolute lymphocyte countOrd ered By: Manju Brewster on 11-16-2023 Lymphocytes Auto (Unsp spec) [#/Vol] 2.23 10*3/uL 0.83-4.51 [facility] Automated lymphocyte count a s percentage of total leukocytesOrdered By: Manjuraleigh Brewster on 11-16-2023 Lymphocytes/100 WBC Auto (Unsp spec) 33.7 % 19-41 [facility] Basophil percentageOrdered B y: Manju Ney on 11-16-2023 Basophils/100 WBC (Bld) 0.6 % 0-1 [facility] Bilirubin [Mass/Vol] 0.50 mg/dL 0.20-1.00 [facility] Comment on above: For patients on eltr ombopag therapy, use of Dimension [place] TBIL is not recommended. Chloride [Moles/Vol] 109 mmol/L 98-107 [facility] Cholesterol [Mass/Vol] 209 mg/dL <200 [facility] Comment on above: <200 mg/dL Desirable 200-240 mg/dL Borderline >240 mg/dL High Risk Eosinophils/100 WBC (Bld) 1.1 % 0-5 [facility] Glucose [Mass/Vol] 97 mg/dL 74-106 [facility] Hemoglobin (Bld) [Mass/Vol] 12.1 g/dL 12.0-15.0 [facility] Monocytes/100 WBC (Bld) 5.1 % 0-10 [facility] Neutrophils (Bld) [#/Vol] 3.9 10*3/uL 2.0-7.7 [facility] Neutrophils/100 WBC (Bld) 59.0 % 47-70 [facility] Potassium [Moles/Vol] 4.2 mmol/L 3.5-5.1 [facility] Protein [Mass/Vol] 7.6 g/dL 6.4-8.2 [facility] Sodium [Moles/Vol] 140 mmol/L 136-145 [facility] Triglyceride [Mass/Vol] 103 mg/dL <199 [facility] Comment on above: The drugs N-Acetylcy steine and Metamizole may falsely depress this assay.Serum Triglycerides Reference Interval Normal <150 mg/dL Borderline high 150 - 199 mg/dL High 200 - 499 mg/dL Very High > or = 500 mg/dL WBC (Bld) [#/Vol] 6.6 10*3/uL 4.4-11.0 [facility] Determination of erythrocyte mean corpuscular volume (MCV)Ordered By: Manju Brewster on 11-16-2023 MCV (RBC) [Entitic vol] 80.1 fL 81-99 [facility] Erythrocyte distribution wid th ratioOrdered By: Manjuzeyad Brewster on 11-16-2023 Erythrocyte distribution width (RBC) [Ratio] 15.6 % 11.6-14.6 [facility] Erythrocyte distribution wid th standard deviationOrdered By: Manju Brewster on 11-16-2023 Erythrocyte distribution width (RBC) [Entitic vol] 44.5 fL 35.1-43.9 [facility] Hematocrit Auto (Bld) [Volum e fraction]Ordered By: Manju Brewster on 11-16-2023 Hematocrit (Bld) [Volume fraction] 39.4 % 37-47 [facility] Immature granulocytes/100 WB C Auto (Bld)Ordered By: Manju Brewster on 11-16-2023 Immature granulocytes/100 WBC (Bld) 0.500 % 0.0-0.9 [facility] Comment on above: IG% - Immature Granu locytes (promyelocytes, myelocytes and metamyelocytes) > 1% indicates that a LEFT SHIFT is Present. Laboratory - Chemistry and C hemistry - challengeOrdered By: Manju Brewster on 11-16-2023 Albumin/Globulin [Mass ratio] 0.9 {ratio} 0.9-2.4 [facility] ALP [Catalytic activity/Vol] 93 U/L 45-117 [facility] ALT [Catalytic activity/Vol] 34 U/L 13-56 [facility] Cholesterol in HDL [Mass/Vol] 31 mg/dL >40 [facility] Comment on above: The drugs N-Acetylcy steine and Metamizole may falsely depress this assay. Reference Range HDL <40 mg/dL Low HDL Cholesterol HDL >or= 60 mg/dL High HDL Cholesterol Cholesterol in LDL [Mass/Vol] 157 mg/dL 0-130 [facility] CO2 [Moles/Vol] 25.0 mmol/L 21.0-32.0 [facility] Globulin (S) [Mass/Vol] 3.9 g/dL 2.2-4.2 [facility] Urea nitrogen/Creatinine [Mass ratio] 12.0 mg/mg 10-20 [facility] Laboratory - Hematology and Cell countsOrdered By: Manju Brewster on 11-16-2023 MCH (RBC) [Entitic mass] 24.6 pg 27.0-32.0 [facility] MCHC (RBC) [Mass/Vol] 30.7 g/dL 32-36 [facility] Nucleated RBC/100 WBC (Bld) [Ratio] 0 % 0-5 [facility] Platelet mean volume (Bld) [Entitic vol] 11.3 fL 6.2-12.0 [facility] Platelets (Bld) [#/Vol] 345 10*3/uL 150-450 [facility] No Panel InformationOrdered By: Manju Brewster on 11-16-2023 Estimated GFR (MDRD) Amer 98 mL/min >60 [facility] Comment on above: GFR Calc Estimated GFR (MDRD) Non-Af Amer 81 mL/min >60 [facility] Comment on above: Non- GFR Calc Urine Microalbumin/Creatinin e Ratio 11.2 mg/g CRE <30 [facility] VLDL Cholesterol 21 mg/dL 5-40 [facility] RBC Auto (Bld) [#/Vol]Ordere d By: Manju Brewster on 11-16-2023 RBC (Bld) [#/Vol] 4.92 10*6/uL 4.2-5.4 [facility] Serum or plasma calcium desiree urement (mass/volume)Ordered By: Manju Brewster on 11-16-2023 Calcium [Mass/Vol] 8.8 mg/dL 8.5-10.1 [facility] Serum or plasma creatinine m easurement (mass/volume)Ordered By: Manju Brewster on 11-16-2023 Creatinine [Mass/Vol] 0.84 mg/dL 0.55-1.02 [facility] Comment on above: The validity of the calculated GFR & GFRAA in patients over 70 years has not been determined. Clinical correlation is essential. Serum or plasma urea nitroge n measurement (mass/volume)Ordered By: Manju Brewster on 11-16-2023 Urea nitrogen [Mass/Vol] 10 mg/dL 7-18 [facility] Thin prep Papanicolaou smear with manual screeningOrdered By: Manju Brewster on 11-16-2023 Thin prep Papanicolaou smear with manual screening 3.7 g/dL 3.2-5.0 [facility] Thin prep Papanicolaou smear with manual screening 18 U/L 15-37 [facility] Thin prep Papanicolaou smear with manual screening 6 5-15 [facility] Thin prep Papanicolaou smear with manual screening 36.7 mg/L NO RANGE EST. [facility] Urine creatinine measurement (mass/volume)Ordered By: Manju Brewster on 11-16-2023 Creatinine (U) [Mass/Vol] 329.00 mg/dL NO RANGE EST. [facility] Whole blood hemoglobin A1c/t otal hemoglobin ratio (mass fraction)Ordered By: Manju Brewster on 11-16-2023 HbA1c (Bld) [Mass fraction] 6.2 % 3.8-5.6 [facility] Comment on above: Normal < 5.7 % Predi abetic 5.7 - 6.4 % Diabetic >or= 6.5 % Please note range changes. Basophil percentageOrdered B y: Manju Brewster on 04-21-2023 Chloride [Moles/Vol] 110 mmol/L 98-107 [facility] Glucose [Mass/Vol] 107 mg/dL 74-106 [facility] Comment on above: Fasting Glucose resu lt from 100 to 125 mg/dL suggests IMPAIRED HOMEOSTASIS per A.D.A. criteria. Potassium [Moles/Vol] 4.1 mmol/L 3.5-5.1 [facility] Sodium [Moles/Vol] 141 mmol/L 136-145 [facility] WBC (Bld) [#/Vol] 6.7 10*3/uL 4.4-11.0 [facility] Blood erythrocytes count (nu mber/volume)Ordered By: Manju Brewster on 04-21-2023 RBC (Bld) [#/Vol] 4.42 10*6/uL 4.2-5.4 [facility] Blood hemoglobin measurement (mass/volume)Ordered By: Manju Brewster on 04-21-2023 Hemoglobin (Bld) [Mass/Vol] 9.9 g/dL 12.0-15.0 [facility] Blood platelet mean volumeOr dered By: Manju Brewster on 04-21-2023 Platelet mean volume (Bld) [Entitic vol] 10.9 fL 6.2-12.0 [facility] Determination of erythrocyte mean corpuscular volume (MCV)Ordered By: Manju Brewster on 04-21-2023 MCV (RBC) [Entitic vol] 76.9 fL 81-99 [facility] Hematocrit Auto (Bld) [Volum e fraction]Ordered By: Manju Brewster on 04-21-2023 Hematocrit (Bld) [Volume fraction] 34.0 % 37-47 [facility] Laboratory - Chemistry and C hemistry - challengeOrdered By: Manju Brewster on 04-21-2023 CO2 [Moles/Vol] 26.0 mmol/L 21.0-32.0 [facility] Urea nitrogen/Creatinine [Mass ratio] 15.6 mg/mg 10-20 [facility] Laboratory - Hematology and Cell countsOrdered By: Manju Brewster on 04-21-2023 Erythrocyte distribution width (RBC) [Entitic vol] 44.2 fL 35.1-43.9 [facility] Erythrocyte distribution width (RBC) [Ratio] 15.7 % 11.6-14.6 [facility] MCH (RBC) [Entitic mass] 22.4 pg 27.0-32.0 [facility] Laboratory - Hematology and Cell countson 04-21-2023 HbA1c (Bld) [Mass fraction] 5.8 [facility] [[facility]/Vol]Or dered By: Manju Brewster on 04-21-2023 MCHC (RBC) [Mass/Vol] 29.1 g/dL 32-36 [facility] No Panel InformationOrdered By: Manju Brewster on 04-21-2023 Estimated GFR (MDRD) Amer 120 mL/min >60 [facility] Comment on above: GFR Calc Estimated GFR (MDRD) Non-Af Amer 99 mL/min >60 [facility] Comment on above: Non- GFR Calc Platelets bldOrdered By: Rishi Brewster on 04-21-2023 Platelets (Bld) [#/Vol] 381 10*3/uL 150-450 [facility] Serum or plasma calcium desiree urement (mass/volume)Ordered By: Manju Brewster on 04-21-2023 Calcium [Mass/Vol] 8.6 mg/dL 8.5-10.1 [facility] Serum or plasma creatinine m easurement (mass/volume)Ordered By: Manju Brewster on 04-21-2023 Creatinine [Mass/Vol] 0.71 mg/dL 0.55-1.02 [facility] Comment on above: The validity of the calculated GFR & GFRAA in patients over 70 years has not been determined. Clinical correlation is essential. Serum or plasma urea nitroge n measurement (mass/volume)Ordered By: Manju Brewster on 04-21-2023 Urea nitrogen [Mass/Vol] 11 mg/dL 7-18 [facility] Thin prep Papanicolaou smear with manual screeningOrdered By: Manju Brewster on 04-21-2023 Thin prep Papanicolaou smear with manual screening 5 5-15 [facility] Laboratory - Hematology and Cell countson 01-18-2023 HbA1c (Bld) [Mass fraction] 5.7 % 4.2-6.3 [facility] Cervical or vagninal specime n microscopic examination by cytology stain (reported asOrdered By: Jeane Vega on 01-03-2023 Cytology report Cyto stain Doc (Cvx/Vag) Comment . [facility] Comment on above: The Pap smear is a s creening test designed to aid in thedetection of premalignant and malignant conditions of theuterine cervix. It is not a diagnostic procedure andshould not be used as the sole means of detecting cervicalcancer. Both false-positive and false-negative reports dooccur. Detection in cervical specim en of any of human papilloma virus (HPV) 16, 18, 31, 33,Ordered By: Jeane Vega on 01-03-2023 HPV 16+18+31+33+35+39+45+5 1+52+56+58+59+66+68 DNA Probe+sig amp Ql (Cvx) Negative Negative [facility] Comment on above: This nucleic acid am plification test detects fourteen high- risk HPV types (16,18,31,33,35,39,45,51,52,56,58,59,66,68)without differentiation. Laboratory - CytologyOrdered By: Jeane Vega on 01-03-2023 Value Analysis Coordinator Cyto stain Nom (Cvx/Vag) [ID] Comment . [facility] Comment on above: Minoo Hawk, [employer] hnologist (ASCP) Laboratory - Miscellaneous t estsOrdered By: Jeane Vega on 01-03-2023 Service comment (Unsp spec) [Interp] Comment . [facility] Comment on above: This liquid based Th inPrep(R) pap test was screened withthe use of an image guided system. Service comment (Unsp spec) [Interp] . . [facility] Liquid-based cerv Pap + CT/G C by NABIL w reflex to high-risk HPV for ASCUSOrdered By: Jeane Vega on 01-03-2023 Cytology report Cyto stain.thin prep Doc (Cvx/Vag) Comment . [facility] Comment on above: Criteria not met, HP V Genotype not performed.Performed at: - [address] [id number] Director: Marcy Polanco MD, Phone: [phone] at: =[facility] [id number] Director: Marcy Polanco MD, Phone: [phone] No Panel InformationOrdered By: Jeane Vega on 01-03-2023 Pathology report final diagnosis Narrative Comment . [facility] Comment on above: NEGATIVE FOR INTRAEP ITHELIAL LESION OR MALIGNANCY. No Panel InformationOrdered By: Dr. Brewster on 11-25-2022 Urine Microalbumin/Creatinin e Ratio 26.0 mg/g CRE <30 [facility] Thin prep Papanicolaou smear with manual screeningOrdered By: Dr. Brewster on 11-25-2022 Thin prep Papanicolaou smear with manual screening 65.6 mg/L NO RANGE EST. [facility] Urine creatinine measurement (mass/volume)Ordered By: Dr. Brewster on 11-25-2022 Creatinine (U) [Mass/Vol] 252.00 mg/dL NO RANGE EST. [facility] Absolute lymphocyte countOrd ered By: Dr. Brewster on 10-12-2022 Lymphocytes Auto (Unsp spec) [#/Vol] 2.47 10*3/uL 0.83-4.51 [facility] Basophil percentageOrdered B y: Dr. Brewster on 10-12-2022 Basophils/100 WBC (Bld) 0.7 % 0-1 [facility] Bilirubin [Mass/Vol] 0.40 mg/dL 0.20-1.00 [facility] Comment on above: For patients on eltr ombopag therapy, use of Dimension [place] TBIL is not recommended. Chloride [Moles/Vol] 107 mmol/L 98-107 [facility] Cholesterol [Mass/Vol] 187 mg/dL <200 [facility] Comment on above: <200 mg/dL Desirable 200-240 mg/dL Borderline >240 mg/dL High Risk Eosinophils/100 WBC (Bld) 1.4 % 0-5 [facility] Glucose [Mass/Vol] 100 mg/dL 74-106 [facility] Comment on above: Fasting Glucose resu lt from 100 to 125 mg/dL suggests IMPAIRED HOMEOSTASIS per A.D.A. criteria. Neutrophils (Bld) [#/Vol] 4.2 10*3/uL 2.0-7.7 [facility] Neutrophils/100 WBC (Bld) 58.7 % 47-70 [facility] Potassium [Moles/Vol] 4.3 mmol/L 3.5-5.1 [facility] Protein [Mass/Vol] 7.5 g/dL 6.4-8.2 [facility] Sodium [Moles/Vol] 140 mmol/L 136-145 [facility] Triglyceride [Mass/Vol] 129 mg/dL <199 [facility] Comment on above: The drugs N-Acetylcy steine and Metamizole may falsely depress this assay.Serum Triglycerides Reference Interval Normal <150 mg/dL Borderline high 150 - 199 mg/dL High 200 - 499 mg/dL Very High > or = 500 mg/dL WBC (Bld) [#/Vol] 7.2 10*3/uL 4.4-11.0 [facility] Blood erythrocytes count (nu mber/volume)Ordered By: Dr. Brewster on 10-12-2022 RBC (Bld) [#/Vol] 4.60 10*6/uL 4.2-5.4 [facility] Blood hemoglobin measurement (mass/volume)Ordered By: Dr. Brewster on 10-12-2022 Hemoglobin (Bld) [Mass/Vol] 10.6 g/dL 12.0-15.0 [facility] Blood lymphocytes/100 leukoc ytesOrdered By: Dr. Brewster on 10-12-2022 Lymphocytes/100 WBC (Bld) 34.3 % 19-41 [facility] Blood monocytes/100 leukocyt esOrdered By: Dr. Brewster on 10-12-2022 Monocytes/100 WBC (Bld) 4.6 % 0-10 [facility] Blood platelet mean volumeOr dered By: Dr. Brewster on 10-12-2022 Platelet mean volume (Bld) [Entitic vol] 11.1 fL 6.2-12.0 [facility] Determination of erythrocyte mean corpuscular volume (MCV)Ordered By: Dr. Brewster on 10-12-2022 MCV (RBC) [Entitic vol] 77.0 fL 81-99 [facility] Hematocrit Auto (Bld) [Volum e fraction]Ordered By: Dr. Brewster on 10-12-2022 Hematocrit (Bld) [Volume fraction] 35.4 % 37-47 [facility] Laboratory - Chemistry and C hemistry - challengeOrdered By: Dr. Brewster on 10-12-2022 ALP [Catalytic activity/Vol] 106 U/L 45-117 [facility] ALT [Catalytic activity/Vol] 45 U/L 13-56 [facility] CO2 [Moles/Vol] 25.0 mmol/L 21.0-32.0 [facility] Globulin (S) [Mass/Vol] 3.9 g/dL 2.2-4.2 [facility] Urea nitrogen/Creatinine [Mass ratio] 10.3 mg/mg 10-20 [facility] Laboratory - Hematology and Cell countsOrdered By: Dr. Brewster on 10-12-2022 Erythrocyte distribution width (RBC) [Entitic vol] 45.8 fL 35.1-43.9 [facility] Erythrocyte distribution width (RBC) [Ratio] 16.6 % 11.6-14.6 [facility] Immature granulocytes/100 WBC (Bld) 0.300 % 0.0-0.9 [facility] Comment on above: IG% - Immature Granu locytes (promyelocytes, myelocytes and metamyelocytes) > 1% indicates that a LEFT SHIFT is Present. MCH (RBC) [Entitic mass] 23.0 pg 27.0-32.0 [facility] Nucleated RBC/100 WBC (Bld) [Ratio] 0 % 0-5 [facility] MCHC Auto (RBC) [Mass/Vol]Or dered By: Dr. Brewster on 10-12-2022 MCHC (RBC) [Mass/Vol] 29.9 g/dL 32-36 [facility] No Panel InformationOrdered By: Dr. Brewster on 10-12-2022 Estimated GFR (MDRD) Amer 125 mL/min >60 [facility] Comment on above: GFR Calc Estimated GFR (MDRD) Non-Af Amer 103 mL/min >60 [facility] Comment on above: Non- GFR Calc Thyroid Stimulating Hormone (TSH) 2.76 uIU/mL 0.358-3.74 [facility] Platelets bldOrdered By: Dr. Brewster on 10-12-2022 Platelets (Bld) [#/Vol] 350 10*3/uL 150-450 [facility] Serum or plasma albumin desiree urement (mass/volume)Ordered By: Dr. Brewster on 10-12-2022 Albumin [Mass/Vol] 3.6 g/dL 3.2-5.0 [facility] Serum or plasma albumin/glob ulin mass ratioOrdered By: Dr. Brewster on 10-12-2022 Albumin/Globulin [Mass ratio] 0.9 {ratio} 0.9-2.4 [facility] Serum or plasma calcium desiree urement (mass/volume)Ordered By: Dr. Brewster on 10-12-2022 Calcium [Mass/Vol] 8.7 mg/dL 8.5-10.1 [facility] Serum or plasma cholesterol in HDL measurement (mass/volume)Ordered By: Dr. Brewster on 10-12-2022 Cholesterol in HDL [Mass/Vol] 32 mg/dL >40 [facility] Comment on above: The drugs N-Acetylcy steine and Metamizole may falsely depress this assay. Reference Range HDL <40 mg/dL Low HDL Cholesterol HDL >or= 60 mg/dL High HDL Cholesterol Serum or plasma cholesterol in VLDL measurement (mass/volume)Ordered By: Dr. Brewster on 10-12-2022 Cholesterol in VLDL [Mass/Vol] 26 mg/dL 5-40 [facility] Serum or plasma creatinine m easurement (mass/volume)Ordered By: Dr. Brewster on 10-12-2022 Creatinine [Mass/Vol] 0.68 mg/dL 0.55-1.02 [facility] Comment on above: The validity of the calculated GFR & GFRAA in patients over 70 years has not been determined. Clinical correlation is essential. Serum or plasma low density lipoprotein (LDL) cholesterol measurement (mass/volume)Ordered By: Dr. Brewster on 10-12-2022 Cholesterol in LDL [Mass/Vol] 129 mg/dL 0-130 [facility] Serum or plasma urea nitroge n measurement (mass/volume)Ordered By: Dr. Brewster on 10-12-2022 Urea nitrogen [Mass/Vol] 7 mg/dL 7-18 [facility] Thin prep Papanicolaou smear with manual screeningOrdered By: Dr. Brewster on 10-12-2022 Thin prep Papanicolaou smear with manual screening 17 U/L 15-37 [facility] Thin prep Papanicolaou smear with manual screening 8 5-15 [facility] Whole blood hemoglobin A1c/t otal hemoglobin ratio (mass fraction)Ordered By: Dr. Brewster on 10-12-2022 HbA1c (Bld) [Mass fraction] 6.5 % 3.8-5.6 [facility] Comment on above: Normal < 5.7 % Predi abetic 5.7 - 6.4 % Diabetic >or= 6.5 % Please note range changes. ANES Dulce Maria 02-06-2018 ANES POST HNO ID: [id number]: ADEOLA Powellervice: AnesthesiologyAuthor Type: AnesthesiologistType: Anesthesia PostOpFiled: 02/06/2018 8:59 AMNote Text:POST ANESTHESIA EVALUATION NOTESERVICE DATE: 02/06/2018SERVICE TIME: 58DOB: 1985Vitals: 02/07/1808Temp: 36.9 ?C (98.4 ?F) 36.4 ?C (97.5 ?F) 02/07/18085BP: 154/73 120/62 02/07/1808Pulse: 61 (!) 56 02/07/1808Resp: 16 16 02/07/1808SpO2: 98% 97%Validated Vital Signs: YesPOST ANES STATUS: No apparent anesthetic complications. The patient isappropriately hydrated with stable respiratory and cardiovascular status.Patient has safe and adequate airway control. The patient has appropriatepain relief and no significant post operative nausea or vomiting. Thepatient has achieved baseline mental status.Further assessment by Anesthesia Service: NoneOther Remarks:SIGNATURE: Sameer Waite MD PATIENT NAME: Wiliam RatliffDATE: February 06, 2018 : 8:58 AM PAGER/CONTACT #: [facility] ANES PREOPon 02-06-2018 ANES PREOP HNO ID: [id number]: ADEOLA Powellervice: AnesthesiologyAuthor Type: AnesthesiologistType: Anesthesia PreOpFiled: 02/06/2018 7:05 AMNote Text: ANESTHESIOLOGY DAY OF SURGERY NOTESERVICE DATE: 02/06/2018SERVICE TIME: 0700DOB: 1985Procedure(s) (LRB):EXCISION SOFT TISSUE TUMOR SUB-Q OF ABDOMEN = / > 3CM (N/A)Surgeon(s):Joseph VazquezanEstimated body mass index is 46.1 kg/m? as calculated from the following: Height as of this encounter: 165.1 cm (5' 5). Weight as of this encounter: 125.6 kg (277 lb).Most recent hematocrit and potassium results:Hematocrit 39.7 07/05/2015Potassium 4.3 01/03/2018ANES DOS/PREOP NOTE:Vitals: BP: 154/73Pulse: 61Resp: 16Temp: 36.9 ?C (98.4 ?F)TempSrc: Temporal ArterySpO2: 98%Weight: 125.6 kg (277 lb)Height: 165.1 cm (5' 5)ACTIVE PROBLEM LISTEndometriomaFatty Liver Disease, NonalcoholicHepatic HemangiomaPAST MEDICAL HISTORYDiagnosis Date- Diabetes, gestational- Fatty liver disease, nonalcoholic 01/03/2018- Fracture of finger, distal phalanx, right, closed 05/10/2016- PMH - PAST MEDICAL HISTORY OF [address] [place] TO [place] SURGICAL HISTORYProcedure Laterality Date- DELIVERY ONLY 11/2009,07/22/12 , low transverse- DELIVERY ONLY 12/18/15 , low transverse- PAST SURGICAL HISTORY OF Right 05/2016 ring finger on right hand tendon repair- SURG RX INCOMPLETE ABORTN 08/13/07 DANDC for incomplete SABFAMILY HISTORYProblem Relation Age of Onset- No Known Problems Mother- Cancer Father MELANOMA- Diabetes Maternal Grandmother- Arthritis Maternal Grandmother- Heart Maternal Grandmother- Diabetes Maternal Grandfather- Cancer Maternal Grandfather LUNG CANCER, smoker- Heart Maternal Grandfather- Cancer Paternal Grandfather MELANOMASocial History:Social HistorySubstance Use Topics- Smoking status: Former Smoker Packs/day: 0.50 Years: 3.00 Types: Cigarettes Quit date: 05/20/2007- Smokeless tobacco: Never Used- Alcohol use NoNo current facility-administered medications on file prior to encounter.No current outpatient prescriptions on file prior to encounter.Current Facility-Administered Medications:lactated ringers infusion 30 mL/hr INTRAVENOUS CONTINUOUS Jospeh Dowd Last Rate: 30 mL/hr at 02/06/18 0630 30 mL/hr at 02/06/18 0630ceFAZolin 3 g in D5W 100 mL (ANCEF) 3 g INTRAVENOUS Pre-Op Once Joseph TGuttmanAllergies:ALLERG IESAllergen Reactions- Latex Rash- Vicodin [Hydrocodon* GI UpsetDOS EXAM: Adequate NPO status: YesAnesthetic risks, benefits, alternatives, personnel and consent discussed:YesPatient agrees to proceed: YesPrevious Anesthesia: No history of adverse event.Airway Assessment: MP 2; Neck ROM: Full ROM without neurologic symptoms;Airway Evaluation: Short Neck and Thick neckSymptoms of Sleep Apnea: Snoring, BMI > 35 and Neck circumference > 15.75inchesDentition: Teeth intactAdditional Physical Exam:Lungs: Patient health status unchanged since recent history and physical.See history and physical for exam findings.Cardiac: Patient health status unchanged since recent history andphysical. See history and physical for exam findings.Blood Products: Not anticipated for this procedure.Anesthetic Plan: General, Standard ASA MonitorsPain Management Plan: Parenteral or OralASA Class: 3Chronic Beta Reginald medication administered within 24 hours: N/AI have interviewed and examined the patient. I have reviewed the medicalrecord and/or the pre-anesthesia evaluation, pertinent labs, and testresults.Significant changes in the patient's condition since the History andPhysical, not otherwise documented in primary service progress notes: NoThis contains updated information obtained within 48 hours ofSurgery/Procedure.SIGN ATURE: aSmeer Waite MD PATIENT NAME: Wiliam RatliffDATE: February 06, 2018 : 7:04 AM CSN: [id number] [facility] BRIEF OP NOTon 02-06-2018 BRIEF OP NOT HNO ID: [id number]: Joseph Jalloh TayloranService: General SurgeryAuthor Type: PhysicianType: Brief Op NoteFiled: 02/06/2018 8:39 AMNote Text:BRIEF OPERATIVE NOTATION FOR SURGICAL PROCEDURE.Wiliam Ratliff 1985 [id number] ID: [id number]/Procedure Date: 02/06/2018Incision/Proced ure Start Time: 7:56 AMIncision Close/Procedure End Time: 8:33 AMSurgeon(s)/Procedurali st(s) and Individualized Education Plan Aide(s):Surgeon(s) and Role: * Joseph Neri - PrimaryRegistered Nurse Motion Picture Set Up Worker: Vilma CarvajalRn) ASHER ClarosREFERRING PHYSICIAN:OutpatientDEPT : TL PROVIDER: Juliet POS:[id number] ESIA: GeneralASA CLASS: 3 - SevereDIAGNOSIS: abdominal wall endometriomaPROCEDURE: Mass - Abdomen subcutaneous >3cm - 71778JPF: 1200EBL: 15Specimens: abdominal wall mass/endometriomaADDITIO NAL DIAGNOSES:FINDINGS: 7cmCOMPLICATIONS: NonePMHx -PAST MEDICAL HISTORYDiagnosis Date- Diabetes, gestational- Fatty liver disease, nonalcoholic 01/03/2018- Fracture of finger, distal phalanx, right, closed 05/10/2016- PMH - PAST MEDICAL HISTORY OF 2001 1ST AND 2ND DEGREE GREGG TO LEGSCOMORBIDITIES - ObesityPost Op Occurrences - NoneWound Classification - CleanOperative note dictated in the dictation system. - [id number] Neri MD [facility] HISTORY PHYSICALon 8 HISTORY PHYSICAL HNO ID: [id number]: Joseph Sanchezervice: General SurgeryAuthor Type: PhysicianType: HANDPFiled: 02/06/2018 6:11 AMNote Text:HISTORY AND PHYSICAL?Wiliam Ratliff1985??REFE RRING PHYSICIAN: Lei Stern*?CHIEF COMPLAINT: Consult (Consult Endometrioma)?HPI: The patient is a 32 year old female with a complaint of a palpablemass at her left lower lateral fast he'll incision. The patient has acesarean section 2 years previously. She has noted this mass and nowbecomes painful during her menses. The patient is CT scan, whichdemonstrates approximately 3 cm mass consistent with an endometrioma.?The patient is being seen by me today at the request of Dr. Thomas for my opinion and advice regarding endometrioma.?PAST?MEDIC AL?HISTORYPAST MEDICAL HISTORYDiagnosis Date- Diabetes, gestational ?- Fracture of finger, distal phalanx, right, closed 05/10/2016- PMH - PAST MEDICAL HISTORY OF 2000? 1ST AND 2ND DEGREE GREGG TO LEGS??PAST?SURGICAL?HIST ORYPAST SURGICAL HISTORYProcedure Laterality Date- DELIVERY ONLY ? 11/2009,07/22/12? , low transverse- DELIVERY ONLY ? 12/18/15? , low transverse- PAST SURGICAL HISTORY OF Right 05/2016? ring finger on right hand tendon repair- SURG RX INCOMPLETE ABORTN ? 08/13/07? DANDC for incomplete SAB???CURRENT?MEDICATION S?Current Outpatient Prescriptions:acetaminop hen (TYLENOL) 500 mg tablet Take 1 tablet by mouth every 4 hoursas needed.oxyCODONE-acetami nophen (PERCOCET) 5-325 mg tablet Take 1 tablet by mouthevery 4 hours as needed for up to 45 doses.Desogestrel-Ethiny l Estradiol (APRI) 0.15-0.03 mg per tablet Take 1 tabletby mouth once daily.?No current facility-administered medications for this visit.?ALLERGIES: Latex; Vicodin [Hydrocodone-Acetaminoph en]?PERSONAL HISTORY:SOCIAL?HISTORYSo cial History Marital status: Single Spouse name: Shorty Years of education: 12 Number of children: 2?Occupational HistoryOccupation Employer [employer]*?Social History Main Topics Smoking status: Former Smoker Packs/day: 0.00 Years: 3.00 Types: Cigarettes Quit date: 05/20/2007 Smokeless status: Never Used Alcohol use: No Drug use: No Sexual activity: Yes Partners with: Male control/protection:??FAM RAHEEL HISTORY:FAMILY?HISTORYFA JAZMIN HISTORYProblem Relation Age of Onset- Cancer Father ?? ? MELANOMA- Diabetes Maternal Grandmother ?- Arthritis Maternal Grandmother ?- Heart Maternal Grandmother ?- Diabetes Maternal Grandfather ?- Cancer Maternal Grandfather ?? ? LUNG CANCER, smoker- Heart Maternal Grandfather ?- Cancer Paternal Grandfather ?? ? MELANOMA??REVIEW OF SYMPTOMS: The review of systems data was entered by the nurse and reviewed by me?There are no exam notes on file for this visit.?PHYSICAL EXAMINATION:?General: The patient is 32 year old female, well nourished, well hydratedin no acute distress. The patient is oriented to time, place, and person.?VITALS: Blood pressure 134/84, pulse 68, weight 122.8 kg (270 lb 12.8 oz).?HEENT: Normal cephalic, ataumatic, pupils are equally round, sclera areanicteric, mucous membranes are moist, oropharynx is clear. Neck has nomasses, asymmetry or lymphadenopathy. Thyroid is unremarkable.?Respirator y: Clear to auscultation and percussion. Normal respiratoryexcursion and pattern.?Cardiac: Examination is regular rate and rhythm.?Abdominal exam: Soft, nontender, with a palpable mass on the leftlateral fast he'll incision at the site of the abnormality on the CT scan,which is tender to proximally 3-4 cm in size No hepatosplenomegaly. Nopalpable hernias.?Rectal exam: exam deferred?Extremities: no clubbing, cyanosis or edema. No adenopathy.?Other:??LABO RATORY VALUES: As Noted?RADIOLOGIC STUDIES: As Noted?AssessmentIMPRESSI ON: Endometrioma?PLAN: I plan to perform an excision of this subcutaneous possiblyfascial attached mass/endometrioma. The planned surgical procedure wasdiscussed extensively with the patient. The risks, benefits andanticipated outcomes of the procedure, the risks and benefits of thealternatives to the procedure, and the roles and tasks of the personnel radha involved, were discussed with the patient. My staff has also explainedthe procedure in understandable terms and the patient was given the optionto take printed material concerning the planned procedure. The patienthad the opportunity to ask questions concerning the planned procedure.The patient freely consents to the planned procedure.?Anticipated Surgical Procedure/ CPT Code: Mass - Abdomen subcutaneous >3cm- 03686?Anticipated Anesthetic: General?Patient weight: Blood pressure 134/84, pulse 68, weight 122.8 kg (270 lb12.8 oz). BMI: Body mass index is 44.38 kg/(m2).?Planned antibiotic: Ancef 3gm IVPB stone paver to OR?SCDs needed - Yes?Individualized Education Plan Aide Needed - Yes?Diagnoses: (N80.9) Endometrioma (primary encounter diagnosis)?My findings have been communicated to Dr. Ninoska Nunez via sharedmedical record. This note will be forwarded to Dr. Jayson Rodriguez III MD.Return to Clinic: The patient is instructed to follow-up with me 1 weekpost operatively.?This note was partially generated using 7write voice recognition system,and there may be some incorrect words, spellings, and punctuation thatwere not noted in checking the note before saving.? Joseph Neri MD [facility] NURSING PROGon 02-06-2018 NURSING PROG HNO ID: [id number]: Ade (Rn) HÉCTOR Shoreervice: (none)Author Type: Registered NurseType: Nursing Progress NoteFiled: 02/06/2018 9:00 AMNote Text: Nursing Progress NotePatient Name: Wiliam RatliffMRN: [id number] Location: [facility] Surgery/SD Surgery ___Pt awake, alert. Incision benign. Skin pink, warm and dry. IV sitewithout complications. Dr. Waite aware of pts allergy to Vicodin andorder for [place]. MD will change orders. Pt states feeling a burning painat a 5/10 but refuses IV meds at this time. I don't want to get sleepyagain and be here longer. Its tolerable and I will take a pill before [place]. Aware to notify RN if changes or concerns. Pharmacy paged re:script.This note was completed by: dAe Shore RN [facility] OPERATIVE NOon 02-06-2018 OPERATIVE NO HNO ID: [id number]: Joseph Sanchezervice: General SurgeryAuthor Type: PhysicianType: Operative ReportFiled: 02/06/2018 5:34 PMNote Text:[facility]- Operative ReportSTEWILIAM RIZZO CDOB: 1985 AGE: 32 SEX: FMRN: [id number] REDWOOD LLCTNUM: [id number] SVC: GENS LOCATION: [address] PHYSICIAN: Joseph Neri M.D.DATE OF PROCEDURE: 02/06/2018SURGEON: Joseph Neri M.D.TOOL AND PRODUCTION PLANNER: NONEANESTHESIA: LMA.PREOPERATIVE DIAGNOSIS(ES): Left lower quadrant Pfannenstiel incision inthe abdominal wall mass approximately [address] scan consistent withendometrioma.POSTOPE RATIVE DIAGNOSIS(ES): A 7 cm mass consistent with endometrioma,excised completely without violating the capsule.NAME OF OPERATION: Excision of abdominal wall mass.INDICATIONS:ESTIMAT ED BLOOD LOSS: 15 cc.COMPLICATIONS: None.SPECIMENS: Abdominal wall mass.DRAINS: None.URINE OUTPUT: No catheter.LOT ID NUMBER: [id number].START TIME: 7:56.END TIME: 8:33.ANESTHESIOLOGIST: Dr. Sameer Waite.ASA: 3 due to obesity.IV FLUIDS: 1200 cc.DISPOSITION: The patient taken to PACU in stable condition.PROCEDURE: The patient was brought to the operative suite. Sign-in wasperformed verifying patient, site, procedure, position, critical nursing,VTE, antibiotic prophylaxis. The patient received 3 grams of Ancef andsequential compression devices placed. The site was marked in theholding area. The patient concurred that this was the planned operativesite. Following IV sedation and general anesthetic with LMA anesthesia,the area of the mass was again identified with ultrasound. The sitemarked of the limits with a Sharpie and then the abdominal wall wasprepped and draped in usual fashion. Time-out was performed verifyingthe patient, site, procedure, position. Incision made through theprevious Pfannenstiel incision. Dissection carried down to subcutaneousfat. The mass was palpated and dissected out sharply and usingelectrocautery mediolaterally, inferior superiorly, down to the level ofthe fascia. The mass was felt to be extrafascial and removed completelyoff the fascial plane. The specimen was then sent off the site withplans to open at the conclusion of the case. Once this was completed,hemostasis was obtained with electrocautery. There was an area ofactually thin fascia somewhat superior to the previous incision. This wasclosed with 0 Surgipro iubjbl-br-oenau sutures. The area was irrigated.Hemostasis was again obtained with electrocautery. Subcutaneous sacclosed with interrupted 3-0 Polysorb sutures. Skin was closed with 4-0Biosyn running subcu suture. Dermabond wasapplied. The patient tolerated the procedure well, brought to therecovery room in stable condition. The specimen was opened on the backtable and this definitely appeared consistent with endometrioma.Joseph Neri M.D.General SurgeryRG:[id number]: 02/06/2018 08:39:49T: 02/06/2018 15:36:37Job #: [id number] [facility] PLAN OF CAREon 02-06-2018 PLAN OF CARE HNO ID: [id number]: Rosmery Sue ([place])Service: (none)Author Type: (none)Type: Plan of CareFiled: 02/06/2018 10:47 AMNote Text:EXPORT COORDINATOR BEDSIDE DELIVERY SURVEY1. Patient to use [facility] Bedside Delivery - YES2. If fax, patient would like us to fax prescriptions to Pharmacy ofchoice a. Pharmacy: b. Location: c. Phone:3. Insurance card on file - YES4. Credit card for payment - [facility] B[facility] DELIVERY SERVICEPatient Name: Wiliam RatliffMRN: [id number] marked outpatient medications were Filled at: [place] and delivered tothe patient's bedside to pharm p/uMedication ListSTART taking these medicationsoxyCODONE-sil taminophen 5-325 mg tabletCommonly known as: PERCOCETTake 1 tablet by mouth every 4 hours as needed for Pain for up to 7 days.XCONTINUE taking these medicationsmultivitamin tabletYou might also be taking other medications not listed above. If you havequestions about any of your other medications, talk to the person whoprescribed them or your Primary Care Provider.Rosmery Sue ([place])PAGER: [phone] 2017 10:47 AM [facility] PT EDon 02-06-2018 PT ED HNO ID: [id number]: Deneen (Rn) Alex RNService: (none)Author Type: Registered NurseType: Patient EducationFiled: 02/06/2018 10:01 AMNote Text:POST OP LEARNING RESPONSEINSTRUCTION PROVIDED TO: Patient and family memberMETHOD OF INSTRUCTION: Teach Back .Individual instructionWritten instruction - handoutsVerbal instructionPATIENT / FAMILY RESPONSE: Verbalizes understanding of: INFECTIONMANAGEMENT-Sign s and symptoms of an infection and importance ofcontacting the physician following discharge instructions, other ways toaddress painFOLLOW-UP PLAN: Patient instructed to call with any further issuesFollow-up with Primary CareSUPPLEMENTAL MATERIAL: NoneREFERRAL (RECOMMENDATION): NoneElectronically Signed By: Deneen Johnson, RN, BSN In Department: [facility] SURGERY [facility] PT ED HNO ID: [id number]: Keith (Rn) HÉCTOR Calderónervice: NursingAuthor Type: Registered NurseType: Patient EducationFiled: 02/06/2018 6:51 AMNote Text:PRE OP LEARNING ASSESSMENTPROCEDURE/SURG STEPHANIE: SURGERY: excision soft tissue mass left lower abd.READINESS TO LEARNCOGNITIVE ABILITY: Alert and orientedMOTIVATION TO LEARN: EagerFAMILY SUPPORT: High - Very involved in pt carePATIENT LEARNS BEST BY: Written Instruction - Hand-outsVerbal InstructionFACTORS AFFECTING LEARNING: NonePHYSICAL LIMITATIONS AFFECTING LEARNING: NoneElectronically Signed By: Keith Calderón RN In [facility] SURGICAL PATHOLOGYon 018 SURGICAL PATHOLOGY [facility]: [id number] Physician: JOSEPH NERI MD ____FINAL DIAGNOSISSoft tissue, abdominal wall mass, excision - Endometriosis.BRITTNEY/EVERETTE/kw/ 02/08/2018Kiel Morton M.D.(Electronic Signature) SPECIMEN SUBMITTEDA: ABDOMINAL WALL MASS CLINICAL DATAABDOMINAL WALL MASS, LMP: NAEXCISION ABDOMINAL WALL MASSGROSS DESCRIPTIONA. Received in formalin designated abdominal wall mass is an unorientedtan-yellow, rubbery and lobulated fragment of fibrofatty tissue that uygjow22 grams and measures 5.5 x 4.5 x 3.5 cm. The outer surface is inked black.Sectioning through the specimen reveals a central jay-white to jay-yellowfibrous area of irregularity, measuring 2.2 cm in greatest dimension. Thereare also areas of hemorrhage within this site. Cutlet Maker Pork sections aresubmitted in five cassettes. WE/db 02/07/2018 Gross [place] [address] of Report: 02/09/2018Date of Procedure: 02/06/2018Date of Receipt: 02/06/2018Submitted by: JOSEPH NERI MDLocation: MEORDiagnostic interpretation performed at [facility], [address] [place] [address]. [facility] Comment on above: Performed By: #### P ATHS ####[facility] [address] [id number] NURSING PROGon 01-25-2018 NURSING PROG HNO ID: [id number]: Donna Kemp (Rn), RNService: (none)Author Type: Registered NurseType: Nursing Progress NoteFiled: 01/25/2018 1:56 PMNote Text:PACC Nurse Progress NoteHistory AND Physical:PACC Visit Date: 01/23/18Original HANDP Date: 01/23/18ED visit Date: N/AOutside HANDP Scanned Date: N/ALabs Within Last 6 Months:BMP/CMP: Date 01/03/18 [id number]: Date 12/30/17 5.8 (pre diabetes)Imaging Within Last 12 Months:N/ACardiac Testing:N/ALast Menstrual Period:LMP Date: 01/03/18Postmenopausal >1yr: No,S/P Hysterectomy: NoBMI Percentile (PEDS):N/ARisk Assessment:N/AAnesthesia Review:DOSNarrative:N/AP re-op Considerations:BMI 46, LMP 01/03/18Chart Check:Juan Kemp RNMay 2017 1:53 PM [facility] HOSPon 12-30-2017 Weight Patient:Me regina Ratliff CMRN: Height:5' 5(1.651 m)Weight:277 lb (125.646 kg)Outpatient Medications as of 02/06/18:multivitamin tabletAdmission/Clinic Administered Medications as of 02/06/18:lactated ringers infusionceFAZolin 3 g in D5W 100 mL (ANCEF)Problem List:Endometrioma [N80.9]Fatty liver disease, nonalcoholic [K76.0]Hepatic hemangioma [D18.03]Allergies:LatexV icodin [Hydrocodone-Acetaminoph en]Date Verified: 02/06/18Lab ValuesNo results within the last 30 days for the following basenames: K,HCTProgress Notes ([facility]):Nahomi Truong RN 01/20/2018 9:35 AM SignedI faxed a letter to patient's employer at [phone] stating that she wasscheduled for surgery and that her return to work would be determined after herprocedure. [place] paper work is to be completed once she has her surgery as weare unsure what the surgery will involve at this point. Patient was notified ofthis and in agreement.Nahomi Truong RN [facility] Vital Signs Date Time Vital Sign Value Performing Clinician Faci lity 02-20-2025 07:37-0400 Body height 165.[address] Manju Brewster MD Work Phone: [facility] 02-20-2025 07:37-0400 Body mass index (BMI) [Ratio] 44.7 kg/m2 Dr. Manju Brewster MD Work Phone: [facility] 02-20-2025 07:37-0400 Body temperature 96.8 [degF] Dr. Manju Brewster MD Work Phone: [facility] 02-20-2025 07:37-0400 Body weight 122.[address] Manju Brewster MD Work Phone: [facility] 02-20-2025 07:37-0400 Diastolic blood pressure 84 mm[Hg] Dr. Manju Brewster MD Work Phone: [facility] 02-20-2025 07:37-0400 Heart rate 84 /min Dr. Manju Brewster MD Work Phone: [facility] 02-20-2025 07:37-0400 Respiratory rate 16 /min Dr. Manju Brewster MD Work Phone: [facility] 02-20-2025 07:37-0400 SaO2% (BldA) [Mass fraction] 98 % Dr. Manju Brewster MD Work Phone: [facility] 02-20-2025 07:37-0400 Systolic blood pressure 138 mm[Hg] Dr. Manju Brewster MD Work Phone: [facility] 11-16-2023 07:50-0500 Body height 165.[address] Manju Brewster Work Phone: [facility] 11-16-2023 07:50-0500 Body mass index (BMI) [Ratio] 43.6 kg/m2 Dr. Manju Brewster Work Phone: [facility] 11-16-2023 07:50-0500 Body temperature 97.7 [degF] Dr. Manju Brewster Work Phone: [facility] 11-16-2023 07:50-0500 Body weight 118.[address] Manju Brewster Work Phone: [facility] 11-16-2023 07:50-0500 Diastolic blood pressure 72 mm[Hg] Dr. Manju Brewster Work Phone: [facility] 11-16-2023 07:50-0500 Heart rate 82 /min Dr. Manju Brewster Work Phone: [facility] 11-16-2023 07:50-0500 Respiratory rate 16 /min Dr. Manju Brewster Work Phone: [facility] 11-16-2023 07:50-0500 SaO2% (BldA) [Mass fraction] 98 % Dr. Manju Brewster Work Phone: [facility] 11-16-2023 07:50-0500 Systolic blood pressure 118 mm[Hg] Dr. Manju Brewster Work Phone: [facility] 04-21-2023 07:54-0400 Body height 165.[address] Manju Brewster Work Phone: [facility] 04-21-2023 07:54-0400 Body mass index (BMI) [Ratio] 45.2 kg/m2 Dr. Manju Brewster Work Phone: [facility] 04-21-2023 07:54-0400 Body temperature 98.3 [degF] Dr. Manju Brewster Work Phone: [facility] 04-21-2023 07:54-0400 Body weight 123.[address] Manju Brewster Work Phone: [facility] 04-21-2023 07:54-0400 Diastolic blood pressure 72 mm[Hg] Dr. Manju Brewster Work Phone: [facility] 04-21-2023 07:54-0400 Heart rate 85 /min Dr. Manju Brewster Work Phone: [facility] 04-21-2023 07:54-0400 Respiratory rate 16 /min Dr. Manju Brewster Work Phone: [facility] 04-21-2023 07:54-0400 SaO2% (BldA) [Mass fraction] 99 % Dr. Manju Brewster Work Phone: [facility] 04-21-2023 07:54-0400 Systolic blood pressure 112 mm[Hg] Dr. Manju Brewster Work Phone: [facility] 04-20-2023 11:03-0400 Body mass index (BMI) [Ratio] 45.5 kg/m2 Dr. Manju Brewster Work Phone: [facility] 04-20-2023 11:03-0400 Body weight [address] Manju Brewster Work Phone: [facility] 04-20-2023 11:03-0400 Diastolic blood pressure 84 mm[Hg] Dr. Manju Brewster Work Phone: [facility] 04-20-2023 11:03-0400 Systolic blood pressure 136 mm[Hg] Dr. Manju Brewster Work Phone: [facility] 01-18-2023 08:44-0400 Body height 165.[address] Manju Brewster Work Phone: [facility] 01-18-2023 08:44-0400 Body mass index (BMI) [Ratio] 47.7 kg/m2 Dr. Manju Brewster Work Phone: [facility] 01-18-2023 08:44-0400 Body weight 129.[address] Manju Brewster Work Phone: [facility] 01-18-2023 08:44-0400 Diastolic blood pressure 78 mm[Hg] Dr. Manju Brewster Work Phone: [facility] 01-18-2023 08:44-0400 Systolic blood pressure 128 mm[Hg] Dr. Manju Brewster Work Phone: [facility] 01-18-2023 08:04-0400 Body mass index (BMI) [Ratio] 47.6 kg/m2 Dr. Manju Brewster Work Phone: [facility] 01-18-2023 08:04-0400 Body temperature 97.1 [degF] Dr. Manju Brewster Work Phone: [facility] 01-18-2023 08:04-0400 Body weight 129.[address] Manju Brewster Work Phone: [facility] 01-18-2023 08:04-0400 Diastolic blood pressure 96 mm[Hg] Dr. Manju Brewster Work Phone: [facility] 01-18-2023 08:04-0400 Heart rate 69 /min Dr. Manju Brewster Work Phone: [facility] 01-18-2023 08:04-0400 Respiratory rate 18 /min Dr. Manju Brewster Work Phone: [facility] 01-18-2023 08:04-0400 SaO2% (BldA) [Mass fraction] 99 % Dr. Manju Brewster Work Phone: [facility] 01-18-2023 08:04-0400 Systolic blood pressure 140 mm[Hg] Dr. Manju Brewster Work Phone: [facility] 01-03-2023 10:01-0400 Body mass index (BMI) [Ratio] 47.1 kg/m2 Dr. Manju Brewster Work Phone: [facility] 01-03-2023 10:01-0400 Body weight 128.[address] Manju Brewster Work Phone: [facility] 01-03-2023 10:01-0400 Diastolic blood pressure 84 mm[Hg] Dr. Manju Brewster Work Phone: [facility] 01-03-2023 10:01-0400 Systolic blood pressure 138 mm[Hg] Dr. Manju Brewster Work Phone: [facility] 11-25-2022 08:32-0500 Body height 165.[address] Manju Brewster Work Phone: [facility] 11-25-2022 08:32-0500 Body mass index (BMI) [Ratio] 49.2 kg/m2 Dr. Manju Brewster Work Phone: [facility] 11-25-2022 08:32-0500 Body temperature 98.1 [degF] Dr. Manju Brewster Work Phone: [facility] 11-25-2022 08:32-0500 Body weight 134.[address] Manju Brewster Work Phone: [facility] 11-25-2022 08:32-0500 Diastolic blood pressure 82 mm[Hg] Dr. Manju Brewster Work Phone: [facility] 11-25-2022 08:32-0500 Heart rate 79 /min Dr. Manju Brewster Work Phone: [facility] 11-25-2022 08:32-0500 Respiratory rate 12 /min Dr. Manju Brewster Work Phone: [facility] 11-25-2022 08:32-0500 SaO2% (BldA) [Mass fraction] 97 % Dr. Manju Brewster Work Phone: [facility] 11-25-2022 08:32-0500 Systolic blood pressure 126 mm[Hg] Dr. Manju Brewster Work Phone: [facility] 10-12-2022 11:07-0500 Diastolic blood pressure 100 mm[Hg] Dr. Manju Brewster Work Phone: [facility] 10-12-2022 11:07-0500 Systolic blood pressure 136 mm[Hg] Dr. Manju Brewster Work Phone: [facility] 10-12-2022 10:05-0500 Body height 165.[address] Manju Brewster Work Phone: [facility] 10-12-2022 10:05-0500 Body mass index (BMI) [Ratio] 49.2 kg/m2 Dr. Manju Brewster Work Phone: [facility] 10-12-2022 10:05-0500 Body temperature 98.4 [degF] Dr. Manju Brewster Work Phone: [facility] 10-12-2022 10:05-0500 Body weight 134.[address] Manju Brewster Work Phone: [facility] 10-12-2022 10:05-0500 Heart rate 72 /min Dr. Manju Brewster Work Phone: [facility] 10-12-2022 10:05-0500 Respiratory rate 16 /min Dr. Manju Brewster Work Phone: [facility] 10-12-2022 10:05-0500 SaO2% (BldA) [Mass fraction] 99 % Dr. Manju Brewster Work Phone: [facility] Encounters Encounter Date Encounter Type Care Provider Facility Start: 02-20-2025 End: 02-20-2025 Patient encounter procedure Dr. Manju Brewster MD -[facility] Work Phone: Start: 02-20-2025 End: 02-20-2025 ambulatory Manju Ney Facility:[facility] Start: 09-10-2024 Encounter for gynecological examination (general) (routine) without abnormal findings Cherri Moeller [facility] Start: 09-10-2024 End: 09-10-2024 ambulatory Manju Colfax Facility:[facility] Start: 08-20-2024 End: 08-20-2024 ambulatory Manju Ney Facility:[facility] Start: 08-20-2024 End: 08-20-2024 ambulatory Manju Colfax Facility:[facility] Start: 05-16-2024 End: 05-16-2024 ambulatory Manju Ney Facility:[facility] Start: 05-16-2024 End: 05-16-2024 ambulatory Manju Colfax Facility:[facility] Start: 11-16-2023 End: 11-16-[address] Manju Brewster Work Phone: [facility] Work Phone: Start: 11-16-2023 End: 11-16-[address] Manju Brewster Work Phone: [facility] Work Phone: Start: 04-21-2023 End: 04-21-[address] Manju Brewster Work Phone: [facility] Work Phone: Start: 04-21-2023 End: 04-21-[address] Manju Brewster Work Phone: [facility] Work Phone: Start: 04-20-2023 End: 04-20-[address] Manju Brewster Work Phone: [facility] Work Phone: Start: 01-18-2023 End: 01-18-[address] Manju Brewster Work Phone: [facility] Work Phone: Start: 01-18-2023 End: 01-18-[address] Manju Brewster Work Phone: [facility]-Laboratory, Specimen Start: 01-18-2023 End: 01-18-[address] Manju Brewster Work Phone: [facility] Start: 01-03-2023 End: 01-03-[address] Manju Brewster Work Phone: [facility], Specimen Start: 01-03-2023 End: 01-03-[address] Manju Brewster Work Phone: [facility] Start: 11-25-2022 End: 11-25-[address] Manju Brewster Work Phone: [facility] Work Phone: Start: 11-25-2022 End: 11-25-[address] Manju Brewster Work Phone: [facility] Start: 11-12-2022 End: 11-12-[address] Manju Brewster Work Phone: [facility] Work Phone: Start: 11-12-2022 End: 11-12-[address] Manju Brewster Work Phone: [facility]ound, [facility] Start: 10-12-2022 End: 10-12-[address] Manju Brewster Work Phone: [facility] Work Phone: Start: 10-12-2022 End: 10-12-[address] Manju Brewster Work Phone: [facility], [facility] Start: 10-12-2022 End: 10-12-[address] Manju Brewster Work Phone: [facility] Start: 02-06-2018 End: 02-06-2018 Ambulatory [facility] Procedures Date Procedure Procedure Detail Performing Clinician Start: 11-12-[address] Delores Brewster Work Phone: Plan of Treatment Date Care Activity Detail Author Start: 10-12-2022 Patient referral [facility] Work Phone: CBC W Auto Different ial panel - Blood [facility] Comprehensive metabo lic 2000 panel - Serum or Plasma [facility] Lipid 1996 panel - S zaynab or Plasma [facility] Patient referral [facility] Work Phone: US Pelvis [facility] Immunizations Immunization Date Immunization Notes Care Provider Fa seymour 12-26-2018 tetanus toxoid, redu cl diphtheria toxoid, and acellular pertussis vaccine, adsorbed Dr. Manju Brewster Work Phone: [facility] 10-02-2015 tetanus toxoid, redu cl diphtheria toxoid, and acellular pertussis vaccine, adsorbed Dr. Manju Brewster Work Phone: [facility] 08-07-2009 novel [id number], preservative-free, injectable Dr. Manju Brewster Work Phone: [facility] Payers Date Payer Category Payer Self-pay [id number] 2023 Unknown [id number] Unknown [id number] Unknown [id number] Unknown [id number] Unknown [id number] Unknown [id number] Unknown [id number] Unknown [id number] Social History Date Type Detail Facility Start: 10-12-2022 End: 11-16-2023 Tobacco smoking status NHIS Unknown if ever smoked [facility] Start: 1985 Sex Assigned At Female W [facility] Start: 02-20-2025 Tobacco smoking stat us KSIS Ex-smoker (finding) [facility] Medical Equipment Procedure Code Equipment Code Equipment Origin al Text Equipment Identifier Dates Blood Sugar Diagnostic (Freestyle Lite Strips) strip Start: 11-29-2022 Lancets (Freesty le Lancets) 28 gauge misc Start: 11-25-2022 Blood Sugar Diagnostic (Freestyle Lite Strips) strip Start: 11-25-2022 End: 11-29-2022 Blood Sugar Diagnostic (Freestyle Lite Strips) strip Start: 11-29-2022 Lancets (Freesty le Lancets) 28 gauge misc Start: 11-25-2022 Blood Sugar Diagnostic (Freestyle Lite Strips) strip Start: 11-25-2022 End: 11-29-2022 Blood Sugar Diagnostic (Freestyle Lite Strips) strip Start: 03-28-2023 Lancets (Freesty le Lancets) 28 gauge misc Start: 11-25-2022 Blood Sugar Diagnostic (Freestyle Lite Strips) strip Start: 11-25-2022 End: 11-29-2022 Blood Sugar Diagnostic (Freestyle Lite Strips) strip Start: 11-29-2022 End: 03-28-2023 Blood Sugar Diagnostic (Freestyle Lite Strips) strip Start: 03-28-2023 Lancets (Freesty le Lancets) 28 gauge misc Start: 11-25-2022 Blood Sugar Diagnostic (Freestyle Lite Strips) strip Start: 11-25-2022 End: 11-29-2022 Blood Sugar Diagnostic (Freestyle Lite Strips) strip Start: 11-29-2022 End: 03-28-2023 Blood Sugar Diagnostic (Freestyle Lite Strips) strip Start: 03-28-2023 Lancets (Freesty le Lancets) 28 gauge misc Start: 11-25-2022 Blood Sugar Diagnostic (Freestyle Lite Strips) strip Start: 11-25-2022 End: 11-29-2022 Blood Sugar Diagnostic (Freestyle Lite Strips) strip Start: 11-29-2022 End: 03-28-2023 Clinical Notes 09-16-2021 to 01-03-2023 Note Date & Type Note Facility 01-03-2023 Note [facility] Pap Smear Specimen Adequacy January 03, 2023 2:24pm Comment . Satisfactory for evaluation. Endocervical and/or squamous metaplasticcells (endocervical component) are present. Comment on above: Satisfactory for ligia luation. Endocervical and/or squamous metaplasticcells (endocervical component) are present. 01-03-2023 Note [facility] Pap Smear Specimen Adequacy January 03, 2023 2:24pm Comment . Satisfactory for evaluation. Endocervical and/or squamous metaplasticcells (endocervical component) are present. Comment on above: Satisfactory for ligia luation. Endocervical and/or squamous metaplasticcells (endocervical component) are present. 09-16-2021 Note Patient Outreach (TALIB MONTANEZAV) WILIAM RATLIFF ([id number]) 1985 F Date Time Provider Department 09/16/21 SHY LING During your visit today, we recorded the following information about you: Shy Ling MA 09/16/2021 8:28 AM Signed [facility] NAVIGATION OUTREACH Action/FYI Attempted to contact patient, no answer and left message requesting a return call to update PCP and schedule Wellness Visit. [employer] message also sent. Contact made with patient or family member? NO Pt identified by name and : NO Outreach Outcome/Action Unable to reach patient: Left message [employer] message sent Reason for Outreach Attribution: Provider Off-boarding Payer: Payor: [employer]FT[employer]Y / Plan: BLUE CARD PPO OOS / [...] future healthcare decisions with a power of criminal defense attorney, living will, or advance directives? Referrals: Message Sent to Practice: Navigation Signature: Shy Ling MA September 16, 2021 8:27 AM Allergies [...] PCR positive fo*01/25/2020 Encounter Status:Closed by SHY LING on 09/16/21 [facility] 09-16-2021 Note HNO ID: [id number] Author: Shy Ling MA Service: ? Author Type: Plant Manager Type: Progress Notes Filed: 09/16/2021 8:28 AM Note Text: [facility] HEALTH NAVIGATION OUTREACH Action/FYI Attempted to contact patient, no answer and left message requesting a return call to update PCP and schedule Wellness Visit. [employer] message also sent. Contact made with patient or family member? NO Pt identified by name and : NO Outreach Outcome/Action Unable to reach patient: Left message MyChart message sent Reason for Outreach Attribution: Provider Off-boarding Payer: Payor: NEFTALY / Plan: BLUE CARD PPO OOS / [...] future healthcare decisions with a power of criminal defense attorney, living will, or advance directives? Referrals: Message Sent to Practice: Navigation Signature: Shy Ling MA September 16, 2021 8:27 AM [facility] Chief complaint+Reason for visit Narrative Reason for Visit Immunization decline d Elevated blood pressure reading Establishing care with new doctor, encounter for Heavy menstrual bleeding History of gestational diabetes Morbid obesity with BMI of 45.0-49.9, adult Elevated LDL cholesterol level [facility] Work Phone: Evaluation note* Diagnosis Onset Date Resolution Status Immunization declined noneac tive Elevated blood pressure reading noneactive Establishing care with new doctor, encounter for noneactive Heavy menstrual bleeding non eactive History of gestational diabetes noneactive Morbid obesity with BMI of 45.0-49.9, adult noneactive Elevated LDL cholesterol level noneactive [facility] Work Phone: Evaluation note* Diagnosis Onset Date Resolution Status Immunization declined noneac tive Elevated blood pressure reading noneactive Establishing care with new doctor, encounter for noneactive Heavy menstrual bleeding non eactive History of gestational diabetes noneactive Morbid obesity with BMI of 45.0-49.9, adult noneactive Elevated LDL cholesterol level noneactive Controlled type 2 diabetes mellitus acute Heavy menstrual bleeding non eactive Morbid obesity with BMI of 45.0-49.9, adult noneactive [facility] Work Phone: evaluation note* Diagnosis Onset Date Resolution Status Immunization declined noneac tive Elevated blood pressure reading noneactive Establishing care with new doctor, encounter for noneactive Heavy menstrual bleeding non eactive History of gestational diabetes noneactive Morbid obesity with BMI of 45.0-49.9, adult noneactive Elevated LDL cholesterol level noneactive Controlled type 2 diabetes mellitus acute Heavy menstrual bleeding non eactive Morbid obesity with BMI of 45.0-49.9, adult noneactive Endometriosis acute Menorrhagia with irregular cycle acute Pelvic pain acute Uterine fibroid acute Encounter for routine gynecological examination noneactive Controlled type 2 diabetes mellitus acute Elevated blood pressure reading noneactive Heavy menstrual bleeding non eactive Morbid obesity with BMI of 45.0-49.9, adult noneactive Endometriosis acute Menorrhagia with irregular cycle acute Pelvic pain acute Uterine fibroid acute [facility] Work Phone: evaluation note* Diagnosis Onset Date Resolution Status Endometriosis acute Menorrhagia with irregular cycle acute Pelvic pain acute Uterine fibroid acute Encounter for routine gynecological examination noneactive Controlled type 2 diabetes mellitus acute Elevated blood pressure reading noneactive Heavy menstrual bleeding non eactive Morbid obesity with BMI of 45.0-49.9, adult noneactive Endometriosis acute Menorrhagia with irregular cycle acute Pelvic pain acute Uterine fibroid acute Endometriosis acute Menorrhagia with irregular cycle acute Pelvic pain acute Uterine fibroid acute Controlled type 2 diabetes mellitus acute Elevated blood pressure reading noneactive Heavy menstrual bleeding non eactive Morbid obesity with BMI of 45.0-49.9, adult noneactive [facility] Work Phone: evaluation note* Diagnosis Onset Date Resolution Status Controlled type 2 diabetes mellitus acute Heavy menstrual bleeding non eactive Essential hypertension nonea ctive Morbid obesity with BMI of 45.0-49.9, adult noneactive [facility] Work Phone: evaluation note* Diagnosis Onset Date Resolution Status Admit Date Controlled type 2 diabetes mellitus acute February 20, 2025 7 :31am Hyperlipidemia acute February 20, 2025 7:31am Heavy menstrual bleeding noneactive Sandra 4th, 2025 7:31am Essential hypertension noneactive Ju 2024 7:31am Morbid obesity with BMI of 45.0-49.9, adult noneactive February 20, 2025 7:31am [facility] Work Phone: Reason for referral (narrative)No reason for referral information availableKingman Medical Services Work Phone: Summary Purpose Family History Relationship Condition Age at Onset Recorded Date/T howard grandmother Arthritis Unknown Diabetes mellitus Unknown Cardiac disease Unknown Malignant melanoma Unknown grandfather Arthritis Unknown Malignant neoplasm Unknown Myocardial infarction Unknown father Malignant melanoma Unknown Relationship Condition Age at Onset Recorded Date/T howard grandmother Arthritis Unknown Diabetes mellitus Unknown Cardiac disease Unknown Malignant melanoma Unknown grandfather Arthritis Unknown Malignant neoplasm Unknown Myocardial infarction Unknown father Malignant melanoma Unknown unrelated friend Hypertension Unknown History of coronary artery stent placement Unknown Advance Directives Advance Directive Response Recorded Date/ Time Living Will No February 01, 2019 4 :28am Power of Poultry Picking Machine Tender No February 01, 2019 4:28am Advance Directive Response Recorded Date/ Time Living Will No February 01, 2019 5 :28am Power of Poultry Picking Machine Tender No February 01, 2019 5:28am Advance Directive Response Recorded Date/ Time Living Will No April 20, 2023 11:03am Power of Poultry Picking Machine Tender No April 20 11:03am Advance Directive Response Recorded Date/ Time Living Will No April 20, 2023 10:03am Power of Poultry Picking Machine Tender No April 20 10:03am Chief Complaint and Reason for Visit 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 WK FU EMB EMB Reason for Visit Immunization decline d Elevated blood pressure reading Establishing care with new doctor, encounter for Heavy menstrual bleeding History of gestational diabetes Morbid obesity with BMI of 45.0-49.9, adult Elevated LDL cholesterol level Controlled type 2 diabetes mellitus Heavy menstrual bleeding Morbid obesity with BMI of 45.0-49.9, adult Endometriosis Menorrhagia with irregular cycle Pelvic pain Uterine fibroid Encounter for routine gynecological examination Controlled type 2 diabetes mellitus Elevated blood pressure reading Heavy menstrual bleeding Morbid obesity with BMI of 45.0-49.9, adult Endometriosis Menorrhagia with irregular cycle Pelvic pain Uterine fibroid Chief Complaint 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 WK FU EMB EMB IUD INSERTION 3 M FU Reason for Visit Endometriosis Menorrhagia with irregular cycle Pelvic pain Uterine fibroid Encounter for routine gynecological examination Controlled type 2 diabetes mellitus Elevated blood pressure reading Heavy menstrual bleeding Morbid obesity with BMI of 45.0-49.9, adult Endometriosis Menorrhagia with irregular cycle Pelvic pain Uterine fibroid Endometriosis Menorrhagia with irregular cycle Pelvic pain Uterine fibroid Controlled type 2 diabetes mellitus Elevated blood pressure reading Heavy menstrual bleeding Morbid obesity with BMI of 45.0-49.9, adult Chief Complaint 6 M FU Reason for Visit Controlled type 2 di abetes mellitus Heavy menstrual bleeding Essential hypertension Morbid obesity with BMI of 45.0-49.9, adult Chief Complaint Admit Date 6 M FU February 20, 2025 7:31a m Reason for Visit Admit Date Controlled type 2 diabetes mellitus February 20, 2025 7:31am Hyperlipidemia February 20, 2025 7:31a m Heavy menstrual bleeding February 20, 2025 7:31am Essential hypertension February 20, 2025 7: 31am Morbid obesity with BMI of 45.0-49.9, ad ult February 20, 2025 7:31am Additional Source Comments INFORMATION SOURCE (unrecogn ized section and content) DATE CREATED AUTHOR 03/08/2018 [facility] DATE CREATED AUTHOR AUTHOR'S ORGANIZ ATION 10/28/2021 [facility] DATE CREATED AUTHOR AUTHOR'S ORGANIZ ATION 02/21/2025 [facility] Care Teams (unrecognized sec tion and content) Team Status: Active Member Role Status Dates Dr. Jayson Rodriguez III, MD Family Provider Active Dr. Manju Brewster MD Primary Care Provider Active Team Status: Inactive Member Role Status Dates Dr. Manju Brewster MD Attending Provider Active Team Status: Inactive Member Role Status Dates Dr. Manju Brewster MD Primary Care Pro vider, Attending Provider, Referring Provider Active Team Status: Inactive Member Role Status Dates Dr. Manju Brewster MD Primary Care Provider, Referri ng Provider Active Jeane Vega READING INTERVENTION TEACHER, READING INTERVENTION TEACHER-C Attending Provider Active Team Status: Inactive Member Role Status Dates Dr. Manju Brewster MD Primary Care Provider Active Jeane Vega READING INTERVENTION TEACHER, READING INTERVENTION TEACHER-C Attending Provider, Referring Provider Active Team Status: Inactive Member Role Status Dates Dr. Manju Brewster MD Primary Care Provider, Attendi ng Provider Active Team Status: Inactive Member Role Status Dates Dr. Manju Brewster MD Primary Care Provider Active Start: February 20, 2025 End: February 20, 2025 Dr. Manju Brewster MD Attending Provider Active Start: February 20, 2025 End: February 20, 2025 Dr. Manju Brewster MD Referring Provider Active Start: February 20, 2025 End: February 20, 2025 Goals (unrecognized section and content) Goals may be documented in a n alternate sectionGoals may be documented in an alternate sectionGoals may be documented in an alternate sectionGoals may be documented in an alternate sectionGoals may be documented in an alternate sectionGoals may be documented in an alternate sectionGoals may be documented in an alternate section FOR RECORDS PERTAINING TO PATIENTS WHO ARE [...] BE BASED ON THE PRIMARY CLINICAL RECORDS. [employer] provides no warranty or guarantee of the accuracy or completeness of information in this document.
[2025-05-25 08:12] LABS: Hematocrit 37.7 % (37-47); Hemoglobin 12.3 g/dL (12.0-15.0); Immature Granulocytes Count 0.010 X10^3/uL (0.0-0.0); Mean Corp Hgb Conc 32.6 g/dL (32-36); Mean Corpuscular Volume 84.9 fL (81-99); Mean Platelet Vol. 10.3 fl (6.2-12.0); NRBC Flagged by Analyzer 0 % (0-5); Platelet Count 258 K/mm3 (150-450); RBC Distribution Width CV 13.0 % (11.6-14.6); RBC Distribution Width SD 39.8 fl (35.1-43.9); Red Blood Count 4.44 M/mm3 (4.2-5.4); White Blood Count 5.5 K/mm3 (4.4-11.0)
[2025-05-25 08:33] LABS: AST(SGOT) 18 U/L (<=31); Alanine Aminotransfer ALT/SGPT 22 U/L (<=34); Albumin, Serum 4.0 g/dL (3.5-5.0); Alkaline Phosphatase 84 U/L (35-104); Anion Gap 10 (5-15); BUN 7 mg/dL (4-19); BUN/Creat Ratio 9.9 RATIO (10-20); Calcium,Total 8.6 mg/dL (7.6-11.0); Carbon Dioxide 21.5 mmol/L (21.0-32.0); Chloride 109 mmol/L (98-108); Cholesterol 123 mg/dL (<=200); Globulin 2.7 g/dL (2.2-4.2); Glucose 113 mg/dL (70-99); Low Density Lipoprotein Calc. 72 mg/dL; Potassium 4.1 mmol/L (3.3-5.1); Triglycerides 80 mg/dL; Very Low Density Lipoprotein 16 mg/dL (5-40); cholesterol:hdl ratio screen 3.54
== END | disposition home or self-care (01) ==
LOC: LAB 07:43
PROVIDERS: PCP Internal Medicine; Referring Provider Internal Medicine; Visit Provider Internal Medicine
DX: E11.9 Type 2 diabetes mellitus without complications (principal); I10 Essential (primary) hypertension; E78.2 Mixed hyperlipidemia
CPT/HCPCS: 36415; 80053; 80061; 85025